=== PATIENT | female | born 2005 | race Caucasian/White ===

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

== ENCOUNTER 2025-01-14 04:17 | Emergency (ER) | payer MEDICAID ==
[~2025-01-14] VITALS: Ht 157.5 cm; Wt 93.8 kg
[~2025-01-14 04:17] MED LIST changes: +IBUP1TAB5 PO
[2025-01-14 05:10] LABS: Urine Bacteria None Seen /hpf (None Seen)
--- NOTE | 2025-01-14 05:18 | ED.PDOC ---
GI ASSESSMENT HPI Comments 19 year old female who came to ER for abdominal pain. Patient states she has been having episodes of epigastric abdominal pain, sharp nonradiating for the past 3 days. Also associated bouts of nausea, vomiting and diarrhea. Denies any possibility of Chief Complaint: Abdominal Pain Time Seen by MD: 05:17 Primary Care Provider: MELISSA Reviewed Notes: Nurses Notes Allergies: Coded Allergies: NO KNOWN ALLERGIES (Unverified , 11/19/18) Home Meds Active Scripts Ibuprofen Micronized (Ibuprofen) 600 Mg Tab, 600 MG PO Q6HPRN PRN for 5 Days, #20 TAB Prov:FILIPE MARTINEZ CUSTOMER COUNTER ASSOCIATE 12/31/24 Dexamethasone (Decadron) 4 Mg Tb, 4 MG PO BID for 5 Days, #10 TAB Prov:JOSEY REDDY MD 11/19/24 Ibuprofen (Ibuprofen) 600 Mg Tab, 1 TAB PO TID, #90 TAB Prov:JOSEY REDDY MD 11/19/24 Acetaminophen (Acetaminophen) 325 Mg Tab, 325 MG PO Q6HP PRN for 10 Days, #40 TAB 0 Refills Prov:CYNDI ALFARO ORDNANCE TRUCK INSTALLATION SUPERVISOR 09/12/24 Ibuprofen (Ibuprofen) 600 Mg Tab, 1 TAB PO TID for 10 Days, #30 TAB 0 Refills Prov:CYNDI ALFARO NP 09/12/24 Ondansetron HCl (Ondansetron) 4 Mg Tab, 4 MG PO BIDP PRN for 2 Days, #4 TAB 0 R efills Prov:CYNDI ALFARO NP 09/12/24 Promethazine-Dm (Promethazine Dm 6.25-15 mg/5Ml) 1 Barbie Barbie, 5 ML PO TIDP PRN for 10 Days, #150 ML 0 Refills Prov:CYNDI ALFARO ORDNANCE TRUCK INSTALLATION SUPERVISOR 09/12/24 Acetaminophen (Acetaminophen) 325 Mg Tab, 325 MG PO Q4HP, #30 MG Prov:CYNDI ALFARO NP 09/12/24 Ibuprofen (Ibuprofen) 600 Mg Tab, 1 TAB PO TID for 10 Days, #30 TAB 0 Refills Prov:CYNDI ALFARO NP 06/04/24 Naproxen (NAPROSYN TABLET) 500 Mg Tb, 1 TAB PO BIDWM for 30 Days, #60 TAB 0 Refills Prov:CYNDI ALFARO NP 11/30/23 Ibuprofen (Ibuprofen) 600 Mg Tab, 600 MG PO TIDP PRN for 10 Days, #30 TAB 0 Refills Prov:DOMINICCYNDI ORDNANCE TRUCK INSTALLATION SUPERVISOR 04/11/23 Cephalexin ( Keflex 500) 500 Mg Cap, 1 CAP PO QID for 7 Days, #28 CAP Prov:VELVET LANG DO 01/26/23 Oral Electrolytes (PEDIALYTE SOLUTION) 1,000 Ml So, 4 TSP PO Q1HP, #3 L Prov:ARSLAN BURT N.PDevan 07/24/13 Ibuprofen (Motrin Ib) 200 Mg Tab, 200 MG PO Q6HP, #30 Prov:ARSLAN BURT N.PDevan 07/24/13 Azithromycin (ZITHROMAX TABLET) 250 Mg Tb, 250 MG PO DAILY, #5 Prov:ARSLAN BURT.PDevan 07/24/13 Information Source: Patient Mode of Arrival: Ambulatory Timing: Hours Duration: Intermittent Prehospital treatment: None Quality: Sharp Vomitus: Food Particles Severity: Moderate Recent: None Recent Hx of: None Pain Location: Epigastric Modifying Factors: Nothing Associated sign and symptoms: Nausea, Vomiting, Diarrhea, Abdominal Pain Past Medical History PAST MEDICAL HISTORY: Anxiety, Depression Surgical History: Denies all surgeries DIGITAL MARKETING ASSOCIATE History: No Pertinent DIGITAL MARKETING ASSOCIATE History Family History Family History: Reviewed,noncontributory to illness Social History Smoker: Non-Smoker Alcohol: Denies ETOH Use Drugs: Marijuana Lives In: Home Constitutional: denies: chills, diaphoresis, fatigue, fever, malaise, sweats, weakness, others EENTM: denies: blurred vision, double vision, ear bleeding, ear discharge, ear drainage, ear pain, ear ringing, eye pain, eye redness, hearing loss, mouth pain, mouth swelling, nasal discharge, nose bleeding, nose congestion, nose pain, photophobia, tearing, throat pain, throat swelling, voice changes, others Respiratory: denies: cough, hemoptysis, orthopnea, SOB at rest, shortness of breath, SOB with excertion, stridor, wheezing, others Cardiovascular: denies: chest pain, dizzy spells, diaphoresis, Dyspnea on exertion, edema, irregular heart beat, left arm pain, lightheadedness, palpitations, PND, syncope, others Gastrointestinal: reports: abdominal pain, diarrhea, nausea, vomiting; denies: abdomen distended, blood streaked bowels, constipated, dysphagia, difficulty swallowing, hematemesis, melena, poor appetite, poor fluid intake, rectal bleeding, rectal pain, others Genitourinary: denies: abnormal vagina bleeding, burning, dyspareunia, dysuria, flank pain, frequency, hematuria, incontinence, pain, , vagina discharge, urgency, others Neurological: denies: dizziness, fainting, headache, left sided numbness, left sided weakness, numbness, paresthesia, pre-existing deficit, right sided numbness, right sided weakness, seizure, speech problems, tingling, tremors, weakness, others Musculoskeletal: denies: back pain, gout, joint pain, joint swelling, muscle pain, muscle stiffness, neck pain, others Integumetry: denies: bruises, change in color, change in hair/nails, dryness, laceration, lesions, lumps, rash, wounds, others Allergic/Immunocompromised: denies: Difficulty Healing, Frequent Infections, Hives, Itching, others Hematologic/Lymphatic: denies: anemia, blood clots, easy bleeding, easy bruisin g, swollen glands, others Endocrine: denies: excessive hunger, excessive sweating, excessive thirst, excessive urination, flushing, intolerance to cold, intolerance to heat, unexplained weight gain, unexplained weight loss, others Psychiatric: denies: anxiety, bipolar disorder, depression, hopeless, panic disorder, schizophrenia, sleepless, suicidal, others Physical Exam General Appearance: No Apparent Distress, Normal HEENT: Normal ENT Inspection, Pharynx Normal, TMs Normal Neck: Full Range of Motion, Non-Tender, Normal, Normal Inspection Respiratory: Chest Non-Tender, Lungs Clear, No Accessory Muscle Use, No Respir atory Distress, Normal Breath Sounds Cardiovascular: No Edema, No JVD, No Murmur, No Gallop, Normal Peripheral Pulses, Regular Rate/Rhythm Breast Exam: Deferred Gastrointestinal: No Organomegaly, Non Tender, No Pulsatile Mass, Normal Bowel Sounds, Soft Genitalia: Deferred Pelvic: Deferred Rectal: Deferred Extremities: No calf tenderness, Normal capillary refill, Normal inspection, Normal range of motion, Non-tender, No pedal edema Musculoskeletal : Apperance: Normal Neurologic: Alert, executive director sheltered workshop II-XII nml as Tested, No Motor Deficits, Normal Affect, Normal Mood, No Sensory Deficits Cerebellar Function: Normal Reflexes: Normal Skin: Dry, Normal Color, Warm Lymphatic: No Adenopathy Was a procedure done? Was a procedure done?: No GI differential Dx Differential Diagnosis: Appendicitis, Bowel Obstruction, Constipation, Diverticular disease, Ectopic , Gastritis/PUD, Gastroenteritis, Ovarian cyst/torsion, Pancreatitis, UTI, Urolithiasis, Electrolyte Imbalance, , Impaction X-Ray, Labs, Meds, VS Vital Signs Date Time Temp Pulse Resp B/P (MAP) Pulse Ox O2 Delivery O2 Flow Rate FiO2 01/14/25 07:28 64 17 98 Room Air* 0 21 01/14/25 07:28 98.0 64 17 130/73 (92) 98 98.0 01/14/25 04:33 98.1 56 16 106/67 (80) 98 98.1 Lab Test 01/14/25 05:46 01/14/25 04:28 Range/Units White Blood Count 12.8 H 4.4-10.8 10^3/uL Red Blood Count 5.26 H 4.0-5.20 10^6/uL Hemoglobin 13.8 12.2-16.2 g/dL Hematocrit 41.7 36.0-46.0 % Mean Corpuscular Volume 79.2 L 80.0-100.0 fL Mean Corpuscular Hemoglobin 26.1 L 28.0-32.0 pg Mean Corpuscular Hemoglobin Concent 33.0 32.0-36.0 g/dL Red Cell Distribution Width 16.0 H 11.8-14.3 % Platelet Count 330 140-450 10^3/uL Mean Platelet Volume 8.5 6.9-10.8 fL Neutrophils (%) (Auto) 78.9 37.0-80.0 % Lymphocytes (%) (Auto) 14.6 10.0-50.0 % Monocytes (%) (Auto) 2.7 0.0-12.0 % Eosinophils (%) (Auto) 3.2 0.0-7.0 % Basophils (%) (Auto) 0.6 0.0-2.0 % Neutrophils # (Auto) 10.1 H 1.6-8.6 10 ^3/uL Lymphocytes # (Auto) 1.9 0.4-5.4 10 ^3/uL Monocytes # (Auto) 0.3 0-1.3 10 ^3/uL Eosinophils # (Auto) 0.4 0-0.8 10 ^3/uL Basophils # (Auto) 0.1 0-0.2 10 ^3/uL Nucleated Red Blood Cells 0.2 % Sodium Level 141 136-145 mmol/L Potassium Level 3.5 3.5-5.1 mmol/L Chloride Level 108 H 98-107 mmol/L Carbon Dioxide Level 21 20-31 mmol/L Anion Gap 12 5-15 Blood Urea Nitrogen 8 L 9-23 mg/dL Creatinine 0.73 0.550-1.02 mg/dL Glomerular Filtration Rate Calc 121 >90 mL/min BUN/Creatinine Ratio 11.0 10.0-20.0 Serum Glucose 107 H 74-106 mg/dL Calcium Level 10.1 8.7-10.4 mg/dL Total Bilirubin 0.4 0.2-1.0 mg/dL Aspartate Amino Transferase (AST) < 8 L 13-40 U/L Alanine Aminotransferase (ALT) 12 7-40 U/L Alkaline Phosphatase 71 46-116 U/L Total Protein 7.7 5.7-8.2 g/dL Albumin 4.9 H 3.2-4.8 g/dL Lipase 37 12-53 U/L Urine Color Light-yellow Yellow Urine Clarity Turbid H Clear Urine pH 5.5 5.0-9.0 Urine Specific [place] 1.024 1.001-1.035 Urine Protein Negative Negative Urine Ketones Negative Negative Urine Blood Negative Negative /uL Urine Nitrite Negative Negative Urine Bilirubin Negative Negative Urine Urobilinogen Normal Negative mg/dL Urine Leukocyte Esterase 2+ Negative /uL Urine RBC <1 0 - 4 /hpf Urine Microscopic WBC 1 0-5 /HPF Urine Squamous Epithelial Cells Mod <5 /hpf Urine Bacteria None seen None Seen /hpf Urine Yeast (Budding) Occasional None Seen /hpf Urine Glucose Normal Normal mg/dL Urine Test Negative Negative Exam: CT CT AB PEL WO CON-NO ORAL OR IV History: abd pain Comparison Study: CT CT AB PEL WO CON-NO ORAL OR IV on DOS: 01/25/23, CT ABD PELVIS WO CONTRAST on DOS: 02/08/20 Technique: Multidetector spiral CT of the abdomen was performed from lung bases to pubic symphysis. Imaging was performed without IV contrast. Axial, coronal and sagittal multiplanar reformats were obtained from the axial data set by the technologist. Radiation Dose : 1. Abdomen/Pelvis: CTDIvol 16.38 mGy, DLP 1026.27 mGy*cm. Findings: Evaluation of solid organs is limited due to lack of intravenous contrast use. Lung Bases: No acute or significant lung base finding. Normal heart size. No pleural or pericardial effusion. Liver: The liver is enlarged, measuring 19.9 cm in craniocaudal dimension. No focal lesions. Gallbladder and Biliary Tree: Unremarkable Spleen: Unremarkable Pancreas: The pancreas is grossly normal in appearance. Adrenal Glands: Unremarkable Kidneys: Kidneys are grossly normal without calculi or hydronephrosis. Bladder: Grossly unremarkable for degree of distention. Bowel: The stomach is grossly normal in appearance. Small bowel and colon are normal in caliber and distribution. The appendix is not visualized; however, no secondary findings of acute appendicitis identified. Ascites: Absent Lymphadenopathy: Moderately prominent slightly enlarged right lower quadrant mesenteric lymph nodes measure up to 0.8 cm in short axis dimension. Abdominal Wall and Mesentery: Unremarkable. Small fat containing umbilical hernia. Vasculature: The visualized abdominal aorta is normal in size and caliber. Evaluation of abdominal and pelvic vessels is limited due to lack of intravenous contrast. Pelvic Organs: Unremarkable Musculoskeletal: No aggressive focal bony lesions, acute fractures or dislocation. IMPRESSION: 1. Mildly enlarged right lower quadrant mesenteric lymph nodes in the presence of a normal appendix. Findings are suggestive of mesenteric adenitis. 2. Hepatomegaly. Time of 1ST Reevaluation: 05:13 Reevaluation 1ST: Unchanged Time of 2ND Reevaluation: 08:38 Reevaluation 2ND: Improved Patient Education/Counseling: Diagnosis, Treatment, Prognosis, Need For Follow Up Family Education/Counseling: No Family Present Additional Information pt has mesenteric adenitis with a normal appendix on ct. she also has a uti. i will start her on keflex. she is stable for discharge Departure 1 Departure Time of Disposition: 08:38 Impression: Primary Impression: Mesenteric adenitis Additional Impression: UTI (urinary tract infection) Qualified Codes: N39.0 - Urinary tract infection, site not specified Disposition: 01 HOME / SELF CARE / HOMELESS Condition: Good e-Prescriptions Cephalexin Monohydrate (Cephalexin) 500 Mg Tab 1 TAB PO QID, #40 TAB Prov: LUCILLE SWEENEY MD 01/14/25 Discharged With: Self Critical Care Note Critical Care Time?: No Stability Stability form required: No Heart Score Heart Score: Heart Score Response (Comments) Value History N/A 0 EKG N/A 0 Age N/A 0 Risk Factors N/A 0 Troponin N/A 0 Total 0 I personally scribed for MUNDO ST MD ([email or web address]) on 01/14/25 at 05:18. Electronically submitted by Shimon Vegas ([facility] I personally scribed for MUNDO ST MD ([email or web address]) on 01/14/25 at 06:00. Electronically submitted by Shimon Vegas ([facility] MUNDO ST MD Jan 14, 2025 05:18 LUCILLE SWEENEY MD Jan 14, 2025 08:40
[2025-01-14 05:21] LABS: Urine Blood Negative /uL (Negative); Urine Budding Yeast OCCASIONAL /hpf (None Seen); Urine Clarity Turbid (Clear); Urine Color Light-Yellow (Yellow); Urine Protein, UAD Negative (Negative); Urine Specific Gravity 1.024 (1.001-1.035); Urine Squamous Epithelial Cell MOD /hpf (<5); Urine Urobilinogen Normal (Negative); Urine WBC 1 /HPF (0-5); Urine pH 5.5 (5.0-9.0)
--- NOTE | 2025-01-14 05:34 | DVH ---
Exam: CT CT AB PEL WO CON-NO ORAL OR IV History: abd pain Comparison Study: CT CT AB PEL WO CON-NO ORAL OR IV on DOS: 01/25/23, CT ABD PELVIS WO CONTRAST on DOS : 02/08/20 Technique: Multidetector spiral CT of the abdomen was performed from lung bases to pubic symphysis. I maging was performed without IV contrast. Axial, coronal and sagittal multiplanar reformats were obta ined from the axial data set by the technologist. Radiation Dose : 1. Abdomen/Pelvis: CTDIvol 16.38 mGy, DLP 1026.27 mGy*cm. Findings: Evaluation of solid organs is limited due to lack of intravenous contrast use. Lung Bases: No acute or significant lung base finding. Normal heart size. No pleural or pericardial effusion. Liver: The liver is enlarged, measuring 19.9 cm in craniocaudal dimension. No focal lesions. Gallbladder and Biliary Tree: Unremarkable Spleen: Unremarkable Pancreas: The pancreas is grossly normal in appearance. Adrenal Glands: Unremarkable Kidneys: Kidneys are grossly normal without calculi or hydronephrosis. Bladder: Grossly unremarkable for degree of distention. Bowel: The stomach is grossly normal in appearance. Small bowel and colon are normal in caliber and d istribution. The appendix is not visualized; however, no secondary findings of acute appendicitis berny ntified. Ascites: Absent Lymphadenopathy: Moderately prominent slightly enlarged right lower quadrant mesenteric lymph nodes m easure up to 0.8 cm in short axis dimension. Abdominal Wall and Mesentery: Unremarkable. Small fat containing umbilical hernia. Vasculature: The visualized abdominal aorta is normal in size and caliber. Evaluation of abdominal a nd pelvic vessels is limited due to lack of intravenous contrast. Pelvic Organs: Unremarkable Musculoskeletal: No aggressive focal bony lesions, acute fractures or dislocation. IMPRESSION: 1. Mildly enlarged right lower quadrant mesenteric lymph nodes in the presence of a normal appendix. Findings are suggestive of mesenteric adenitis. 2. Hepatomegaly. Radiation optimization: All CT scans at this facility use at least one of these dose optimization opal hniques: automated exposure control mA and/or kV adjustment per patient size (includes targeted exam s where dose is matched to clinical indication) or iterative reconstruction.
[2025-01-14 06:29] LABS: Basophils # (auto) 0.1 10 ^3/uL (0-0.2); Basophils % (auto) 0.6 % (0.0-2.0); Hematocrit 41.7 % (36.0-46.0)
[2025-01-14 06:31] LABS: Eosinophils # (auto) 0.4 10 ^3/uL (0-0.8); Eosinophils % (auto) 3.2 % (0.0-7.0); Hemoglobin 13.8 g/dL (12.2-16.2); Lymphocytes # (auto) 1.9 10 ^3/uL (0.4-5.4); Lymphocytes % (auto) 14.6 % (10.0-50.0); Mean Corpuscular Hemoglobin 26.1 pg (28.0-32.0); Mean Corpuscular Volume 79.2 fL (80.0-100.0); Monocytes # (auto) 0.3 10 ^3/uL (0-1.3); Monocytes % (auto) 2.7 % (0.0-12.0); Neutrophils # (auto) 10.1 10 ^3/uL (1.6-8.6); Neutrophils % (auto) 78.9 % (37.0-80.0); Nucleated Red Blood Cells % 0.2 %; Platelet Count (auto) 330 10^3/uL (140-450); Red Blood Cells 5.26 10^6/uL (4.0-5.20); White Blood Cell 12.8 10^3/uL (4.4-10.8)
[2025-01-14 06:39] LABS: Alanine Aminotransferase 12 U/L (7-40); Alkaline Phosphatase 71 U/L (46-116); Anion Gap 12 (5-15); Calcium 10.1 mg/dL (8.7-10.4); Carbon Dioxide 21 mmol/L (20-31); Lipase 37 U/L (12-53); Sodium 141 mmol/L (136-145); Total Protein 7.7 g/dL (5.7-8.2)
[2025-01-14 06:40] LABS: Albumin 4.9 g/dL (3.2-4.8); Aspartate Aminotransferase < 8 U/L (13-40); Bilirubin, Total 0.4 mg/dL (0.2-1.0); Blood Urea Nitrogen 8 mg/dL (9-23); Chloride 108 mmol/L (98-107); Glucose 107 mg/dL (74-106); Potassium 3.5 mmol/L (3.5-5.1)
[2025-01-14 07:28] VITALS: BP 130/73; PULSE 64; RESP 17; TEMP 98; O2SAT 98
[2025-01-14] MEDS ORDERED: CEPH500T PO (08:40)
[2025-01-14] MEDS: CEPHALEXIN 250 MG CAP PO ONE (08:48)
== END 2025-01-14 08:47 | disposition home or self-care (01) ==
LOC: ER 04:17
DX: I88.0 Nonspecific mesenteric lymphadenitis (principal); N39.0 Urinary tract infection, site not specified; F41.9 Anxiety disorder, unspecified; F32.A Depression, unspecified
CPT/HCPCS: 36415; 74176; 80053; 81001; 81025; 82947; 83690; 85025

== ENCOUNTER 2025-03-17 12:06 | Emergency (ER) | payer MEDICAID ==
[~2025-03-17] VITALS: Ht 157.5 cm; Wt 94.1 kg
[~2025-03-17 12:06] MED LIST changes: +CEPH500T PO
--- NOTE | 2025-03-17 12:33 | ED.PDOC ---
History of Present Illness HPI Comments 19-year-old female with no PMHx presents with a chief complaint of bee sting. Patient states that [place] walking at the park in the [place] and decided to take her shoe off when she stepped on a bee. Patient reports that she was able to remove most of the stinger, but still feels like part of it is stuck in her foot. Patient was stung on her right foot. Chief Complaint: Insect Bite Time Seen by MD: 12:26 Primary Care Provider: MELISSA Murray Notes: Medications, Allergies Allergies: Coded Allergies: NO KNOWN ALLERGIES (Unverified , 11/19/18) Home Meds Active Scripts Cephalexin Monohydrate (Cephalexin) 500 Mg Tab, 1 TAB PO QID, #40 TAB Prov:LUCILLE SWEENEY MD 01/14/25 Ibuprofen Micronized (Ibuprofen) 600 Mg Tab, 600 MG PO Q6HPRN PRN for 5 Days, #20 TAB Prov:FILIPE MARTINEZ FRUIT DRYER 12/31/24 Dexamethasone (Decadron) 4 Mg Tb, 4 MG PO BID for 5 Days, #10 TAB Prov:JOSEY REDDY MD 11/19/24 Ibuprofen (Ibuprofen) 600 Mg Tab, 1 TAB PO TID, #90 TAB Prov:JOSEY REDDY MD 11/19/24 Acetaminophen (Acetaminophen) 325 Mg Tab, 325 MG PO Q6HP PRN for 10 Days, #40 TAB 0 Refills Prov:CYNDI ALFARO NP 09/12/24 Ibuprofen (Ibuprofen) 600 Mg Tab, 1 TAB PO TID for 10 Days, #30 TAB 0 Refills Prov:CYNDI ALFARO NP 09/12/24 Ondansetron HCl (Ondansetron) 4 Mg Tab, 4 MG PO BIDP PRN for 2 Days, #4 TAB 0 Refills Prov:CYNDI ALFARO NP 09/12/24 Promethazine-Dm (Promethazine Dm 6.25-15 mg/5Ml) 1 Barbie Barbie, 5 ML PO TIDP PRN for 10 Days, #150 ML 0 Refills Prov:CYNDI ALFARO NP 09/12/24 Acetaminophen (Acetaminophen) 325 Mg Tab, 325 MG PO Q4HP, #30 MG Prov:CYNDI ALFARO NP 09/12/24 Ibuprofen (Ibuprofen) 600 Mg Tab, 1 TAB PO TID for 10 Days, #30 TAB 0 Refills Prov:CYNDI ALFARO WIRE COATER 06/04/24 Naproxen (NAPROSYN TABLET) 500 Mg Tb, 1 TAB PO BIDWM for 30 Days, #60 TAB 0 Refills Prov:CYNDI ALFARO WIRE COATER 11/30/23 Ibuprofen (Ibuprofen) 600 Mg Tab, 600 MG PO TIDP PRN for 10 Days, #30 TAB 0 Refills Prov:CYNDI ALFARO WIRE COATER 04/11/23 Cephalexin ( Keflex 500) 500 Mg Cap, 1 CAP PO QID for 7 Days, #28 CAP Prov:VELVET LANG DO 01/26/23 Oral Electrolytes (PEDIALYTE SOLUTION) 1,000 Ml So, 4 TSP PO Q1HP, #3 L Prov:ARSLAN BURT N.PDevan 07/24/13 Ibuprofen (Motrin Ib) 200 Mg Tab, 200 MG PO Q6HP, #30 Prov:ARSLAN BURT N.PDevan 07/24/13 Azithromycin (ZITHROMAX TABLET) 250 Mg Tb, 250 MG PO DAILY, #5 Prov:ARSLAN BURT N.PDevan 07/24/13 Information Source: Patient Mode of Arrival: Ambulatory Severity: Moderate Timing: Hours Duration: Since onset Prehospital treatment: None Past Medical History PAST MEDICAL HISTORY: Anxiety, Depression Surgical History: Denies all surgeries CROSS CUT SAWYER History: No Pertinent CROSS CUT SAWYER History Family History Family History: Reviewed,noncontributory to illness Social History Smoker: Non-Smoker Alcohol: Denies ETOH Use Drugs: Marijuana Lives In: Home Constitutional: denies: chills, diaphoresis, fatigue, fever, malaise, sweats, weakness, others EENTM: denies: blurred vision, double vision, ear bleeding, ear discharge, ear drainage, ear pain, ear ringing, eye pain, eye redness, hearing loss, mouth pain, mouth swelling, nasal discharge, nose bleeding, nose congestion, nose pain, photophobia, tearing, throat pain, throat swelling, voice changes, others Respiratory: denies: cough, hemoptysis, orthopnea, SOB at rest, shortness of breath, SOB with excertion, stridor, wheezing, others Cardiovascular: denies: chest pain, dizzy spells, diaphoresis, Dyspnea on exertion, edema, irregular heart beat, left arm pain, lightheadedness, palpitations, PND, syncope, others Gastrointestinal: denies: abdomen distended, abdominal pain, blood streaked bowels, constipated, diarrhea, dysphagia, difficulty swallowing, hematemesis, melena, nausea, poor appetite, poor fluid intake, rectal bleeding, rectal pain, vomiting, others Genitourinary: denies: abnormal vagina bleeding, burning, dyspareunia, dysuria, flank pain, frequency, hematuria, incontinence, pain, , vagina discharge, urgency, others Neurological: denies: dizziness, fainting, headache, left sided numbness, left sided weakness, numbness, paresthesia, pre-existing deficit, right sided numbness, right sided weakness, seizure, speech problems, tingling, tremors, weakness, others Musculoskeletal: denies: back pain, gout, joint pain, joint swelling, muscle pain, muscle stiffness, neck pain, others Integumetry: denies: bruises, change in color, change in hair/nails, dryness, laceration, lesions, lumps, rash, wounds, others Allergic/Immunocompromised: denies: Difficulty Healing, Frequent Infections, Hives, Itching, others Hematologic/Lymphatic: denies: anemia, blood clots, easy bleeding, easy bruising, swollen glands, others Endocrine: denies: excessive hunger, excessive sweating, excessive thirst, excessive urination, flushing, intolerance to cold, intolerance to heat, une xplained weight gain, unexplained weight loss, others Psychiatric: denies: anxiety, bipolar disorder, depression, hopeless, panic disorder, schizophrenia, sleepless, suicidal, others All Other Systems: Reviewed and Negative ( PER HPI) Physical Exam General Appearance: Moderate Distress, Normal HEENT: Normal ENT Inspection, Pharynx Normal, TMs Normal Neck: Full Range of Motion, Non-Tender, Normal, Normal Inspection Respiratory: Chest Non-Tender, Lungs Clear, No Accessory Muscle Use, No Resp iratory Distress, Normal Breath Sounds Cardiovascular: No Edema, No JVD, No Murmur, No Gallop, Normal Peripheral Pulses, Regular Rate/Rhythm Breast Exam: Deferred Gastrointestinal: No Organomegaly, Non Tender, No Pulsatile Mass, Normal Bowel Sounds, Soft Genitalia: Deferred Pelvic: Deferred Rectal: Deferred Extremities: No calf tenderness, Normal capillary refill, Normal inspection, Normal range of motion, Non-tender, No pedal edema Musculoskeletal : Apperance: Normal Neurologic: Alert, detective bureau chief II-XII nml as Tested, No Motor Deficits, Normal Affect, Normal Mood, No Sensory Deficits Cerebellar Function: Normal Reflexes: Normal Skin: Dry, Normal Color, Warm, Wounds (Right foot sole insect bite) Peripheral Pulses: 3+ Radial (R), 3+ Radial (L) Lymphatic: No Adenopathy Was a procedure done? Was a procedure done?: No Differential Dx Considerations may include: Foreign body Anxiety X-Ray, Labs, Meds, VS Vital Signs Date Time Temp Pulse Resp B/P (MAP) Pulse Ox O2 Delivery O2 Flow Rate FiO2 03/17/25 12:15 98.5 80 18 134/82 (99) 95 98.5 Patient alert pain Possibly insect bite. Under local anesthesia was able to remove the remnant of the insect. Vitals stable. Answering questions. She is not diabetic. Was given prescription of amoxicillin antibiotic. Explained to the patient. Was told to follow up with her primary care physician. Was told to come back if there is any problem. Time of 1ST Reevaluation: 12:56 Reevaluation 1ST: Improved Patient Education/Counseling: Diagnosis, Treatment, Need For Follow Up Family Education/Counseling: No Family Present SEPSIS Sepsis Screen Vital Signs Date Time Temp Pulse Resp B/P (MAP) Pulse Ox O2 Delivery O2 Flow Rate FiO2 03/17/25 12:15 98.5 80 18 134/82 (99) 95 98.5 Departure 1 Departure Time of Disposition: 12:58 Impression: Primary Impression: Foreign body Additional Impression: Insect bite Qualified Codes: S90.861A - Insect bite (nonvenomous), right foot, initial encounter; W57.XXXA - Bitten or stung by nonvenomous insect and other nonvenomous arthropods, initial encounter Disposition: 01 HOME / SELF CARE / HOMELESS Condition: Good e-Prescriptions Amoxicillin Trihydrate (Amoxicillin) 500 Mg Tab 1 TAB PO TID for 5 Days, #15 TAB Prov: SVEN CHOI MD 03/17/25 Discharged With: Self Critical Care Note Critical Care Time?: No Stability Stability form required: No Heart Score Heart Score: Heart Score Response (Comments) Value History N/A 0 EKG N/A 0 Age N/A 0 Risk Factors N/A 0 Troponin N/A 0 Total 0 I personally scribed for SVEN CHOI MD ([email or web address]) on 03/17/25 at 12:33. Electronically submitted by Vince Ashby ([email or web address]). SVEN CHOI MD Mar 17, 2025 12:33
[2025-03-17] MEDS: LIDOCAINE 2%HCL (LOCAL ANESTH.) INJ 10ml MDV IJ ONE (12:38)
[2025-03-17] MEDS ORDERED: AMOX500T3 PO (12:58)
[2025-03-17 13:28] VITALS: BP 101/68; PULSE 79; RESP 18; TEMP 98.2; O2SAT 97
== END 2025-03-17 13:46 | disposition home or self-care (01) ==
LOC: ER 12:06
DX: S90.859A Superficial foreign body, unspecified foot, initial encounter (principal); W57.XXXA Bitten or stung by nonvenomous insect and other nonvenomous arthropods, initial encounter; Y93.01 Activity, walking, marching and hiking; Y92.89 Other specified places as the place of occurrence of the external cause; Y99.8 Other external cause status
CPT/HCPCS: 99284; J2003

== ENCOUNTER 2025-07-19 17:46 | Emergency (ER) | payer MEDICAID ==
[~2025-07-19] VITALS: Ht 157.5 cm; Wt 97.2 kg
[~2025-07-19 17:46] MED LIST changes: +AMOX500T3 PO
[2025-07-19] MEDS ORDERED: METH4PAK PO (18:46)
[2025-07-19] MEDS ORDERED: FAMO20TA10 PO (18:46)
[2025-07-19] MEDS: FAMOTIDINE 20 MG TAB PO ONE (18:48)
[2025-07-19 18:57] VITALS: BP 125/78; PULSE 113; RESP 20; TEMP 98; O2SAT 98
--- NOTE | 2025-07-20 11:24 | ED.PDOC ---
HPI Allergic reaction HPI Comments PT REPORTS EATING CANDY WITH PEANUTS YESTERDAY AND STATES SHE MAY BE ALLERGIC DUE TO SOB STARTED AFTER CONSUMPTIONS YESTERDAY AROUND 1800. PT STATES HAVING PEANUTS IN THE PAST WITH NO REACTION. PT SAT AT 96% ON RA, SPEAKING FULL SENTENCES, EVEN AND UNLABORED BREATHING. NO DISTRESS NOTED Chief Complaint: Allergic Reaction Time Seen by MD: 17:59 Primary Care Provider: MELISSA Reviewed Notes: Nurses Notes, Medications, Allergies Allergies: Coded Allergies: NO KNOWN ALLERGIES (Unverified , 11/19/18) Home Meds Active Scripts Famotidine (PEPCID TABLET) 20 Mg Tb, 1 TAB PO BID for 6 Days, #12 TAB Prov:LUCINDA DELAROSA REGULATORY ADMINISTRATOR 07/19/25 Methylprednisolone (Medrol Dosepak) 4 Mg Nicolas, 4 MG PO UD for 6 Days, #21 TAB UAD Prov:LUCINDA DELAROSA REGULATORY ADMINISTRATOR 07/19/25 Amoxicillin Trihydrate (Amoxicillin) 500 Mg Tab, 1 TAB PO TID for 5 Days, #15 TAB Prov:SVEN CHOI MD 03/17/25 Cephalexin Monohydrate (Cephalexin) 500 Mg Tab, 1 TAB PO QID, #40 TAB Prov:LUCILLE SWEENEY MD 01/14/25 Ibuprofen Micronized (Ibuprofen) 600 Mg Tab, 600 MG PO Q6HPRN PRN for 5 Days, #20 TAB Prov:FILIPE MARTINEZ REGULATORY ADMINISTRATOR 12/31/24 Dexamethasone (Decadron) 4 Mg Tb, 4 MG PO BID for 5 Days, #10 TAB Prov:JOSEY REDDY MD 11/19/24 Ibuprofen (Ibuprofen) 600 Mg Tab, 1 TAB PO TID, #90 TAB Prov:JOSEY REDDY MD 11/19/24 Acetaminophen (Acetaminophen) 325 Mg Tab, 325 MG PO Q6HP PRN for 10 Days, #40 TAB 0 Refills Prov:CYNDI ALFARO NP 09/12/24 Ibuprofen (Ibuprofen) 600 Mg Tab, 1 TAB PO TID for 10 Days, #30 TAB 0 Refills Prov:CYNDI ALFAOR SOCIAL MEDIA MARKETING MANAGER 09/12/24 Ondansetron HCl (Ondansetron) 4 Mg Tab, 4 MG PO BIDP PRN for 2 Days, #4 TAB 0 Refills Prov:CYNDI ALFARO NP 09/12/24 Promethazine-Dm (Promethazine Dm 6.25-15 mg/5Ml) 1 Barbie Barbie, 5 ML PO TIDP PRN for 10 Days, #150 ML 0 Refills Prov:CYNDI ALFARO SOCIAL MEDIA MARKETING MANAGER 09/12/24 Acetaminophen (Acetaminophen) 325 Mg Tab, 325 MG PO Q4HP, #30 MG Prov:CYNDI ALFARO SOCIAL MEDIA MARKETING MANAGER 09/12/24 Ibuprofen (Ibuprofen) 600 Mg Tab, 1 TAB PO TID for 10 Days, #30 TAB 0 Refills Prov:CYNDI ALFARO SOCIAL MEDIA MARKETING MANAGER 06/04/24 Naproxen (NAPROSYN TABLET) 500 Mg Tb, 1 TAB PO BIDWM for 30 Days, #60 TAB 0 Refills Prov:CYNDI ALFARO SOCIAL MEDIA MARKETING MANAGER 11/30/23 Ibuprofen (Ibuprofen) 600 Mg Tab, 600 MG PO TIDP PRN for 10 Days, #30 TAB 0 Refills Prov:CYNDI ALFARO SOCIAL MEDIA MARKETING MANAGER 04/11/23 Cephalexin ( Keflex 500) 500 Mg Cap, 1 CAP PO QID for 7 Days, #28 CAP Prov:VELVET LANG DO 01/26/23 Oral Electrolytes (PEDIALYTE SOLUTION) 1,000 Ml So, 4 TSP PO Q1HP, #3 L Prov:ARSLAN BURT N.P. 07/24/13 Ibuprofen (Motrin Ib) 200 Mg Tab, 200 MG PO Q6HP, #30 Prov:ARSLAN BURT N.P. 07/24/13 Azithromycin (ZITHROMAX TABLET) 250 Mg Tb, 250 MG PO DAILY, #5 Prov:ARSLAN BURT N.P. 07/24/13 Mode of Arrival: Ambulatory Past Medical History PAST MEDICAL HISTORY: Anxiety, Depression Surgical History: Denies all surgeries BULLDOGGER History: No Pertinent BULLDOGGER History Family History Family History: Reviewed,noncontributory to illness Social History Smoker: Non-Smoker Alcohol: Denies ETOH Use Drugs: Marijuana Lives In: Home All Other Systems: Reviewed and Negative (SEE HPI) Physical Exam General Appearance: No Apparent Distress, Normal HEENT: Pharynx Normal Neck: Full Range of Motion, Non-Tender Respiratory: Lungs Clear, No Accessory Muscle Use, No Respiratory Distress, Normal Breath Sounds Cardiovascular: No Edema, No JVD, No Murmur, No Gallop, Normal Peripheral Pulses, Regular Rate/Rhythm Breast Exam: Deferred Gastrointestinal: No Organomegaly, Non Tender, No Pulsatile Mass, Normal Bowel Sounds, Soft Genitalia: Deferred Pelvic: Deferred Rectal: Deferred Extremities: Normal range of motion, No pedal edema Musculoskeletal : Apperance: Normal Neurologic: Alert, No Motor Deficits, Normal Affect, Normal Mood, No Sensory Deficits Cerebellar Function: Normal Reflexes: NOT DONE Skin: Dry, Normal Color, Warm Lymphatic: No Adenopathy Was a procedure done? Was a procedure done?: No Differential diagnosis (all) Differential Diagnosis: Anaphylaxis, Angioedema, Bronchospasm, Drug Reaction, Hypotension, Shock, Urticaria X-Ray, Labs, Meds, VS Vital Signs Date Time Temp Pulse Resp B/P (MAP) Pulse Ox O2 Delivery O2 Flow Rate FiO2 07/19/25 18:57 98.0 113 20 125/78 (94) 98 98.0 07/19/25 18:57 113 20 98 Room Air 07/19/25 17:48 98.0 113 20 125/78 98 98.0 Time of 1ST Reevaluation: 18:00 Reevaluation 1ST: Improved Time of 2ND Reevaluation: 18:45 Reevaluation 2ND: Improved Patient Education/Counseling: Diagnosis, Treatment, Need For Follow Up Family Education/Counseling: No Family Present SEPSIS Sepsis Screen Date sepsis recognized/suspect: Jul 19, 2025 Time Sepsis recognized/suspect: 8 Recent Procedure: No On Antibiotic Therapy: No Respiratory Rate >20: No Heart Rate >90: Yes Temp<36 C (96.8 F) or >38.3 C: No SBP <90 or MAP <65 mmHG: No New Acute Mental Status Change: No Is the patient on CPAP, BIPAP,: No Vital Signs Date Time Temp Pulse Resp B/P (MAP) Pulse Ox O2 Delivery O2 Flow Rate FiO2 07/19/25 18:57 98.0 113 20 125/78 (94) 98 98.0 07/19/25 18:57 113 20 98 Room Air 07/19/25 17:48 98.0 113 20 125/78 98 98.0 Departure 1 Departure Time of Disposition: 18:45 Impression: Primary Impression: Allergic reaction Qualified Codes: T78.40XA - Allergy, unspecified, initial encounter Disposition: HOME / SELF CARE / HOMELESS Condition: Stable e-Prescriptions Famotidine (PEPCID TABLET) 20 Mg Tb 1 TAB PO BID for 6 Days, #12 TAB Prov: LUCINDA DELAROSA 07/19/25 Methylprednisolone (Medrol Dosepak) 4 Mg Nicolas 4 MG PO UD for 6 Days, #21 TAB UAD Prov: LUCINDA DELAROSA 07/19/25 Discharged With: Relative (Mother) Critical Care Note Critical Care Time?: No Stability Stability form required: No LUCINDA DELAROSA Jul 19, 2025 18:46
== END 2025-07-19 18:57 | disposition home or self-care (01) ==
LOC: ER 17:49
DX: R06.02 Shortness of breath (principal); T78.40XA Allergy, unspecified, initial encounter; Z79.899 Other long term (current) drug therapy; X58.XXXA Exposure to other specified factors, initial encounter
CPT/HCPCS: 96372; 99283; J1100

== ENCOUNTER 2025-09-02 13:06 | Emergency (ER) | payer MEDICAID ==
[~2025-09-02] VITALS: Ht 160 cm; Wt 95.4 kg
--- NOTE | 2025-09-02 13:20 | ED.PDOC ---
HPI Comments 20 y/o F, GAVIN, with PMHx of anxiety and depression presents to the ED for CC of chest pain. EMS reports, patient is coming from home where she c/o substernal chest pain onset, this morning (09/02/25) following feeling anxious. Per EMS, patient became emotional and distraught d/t symptoms. Upon arrival to the ED, patient reports pain to have subsided. Patient denies headache, dizziness, nausea, or vomiting. No other symptoms or modifying factors are present at this time. Chief Complaint: Chest Pain Time Seen by MD: 13:00 Primary Care Provider: MELISSA Reviewed Notes: Nurses Notes, Auto Battery Builder Notes, Medications, Allergies Allergies: Coded Allergies: NO KNOWN ALLERGIES (Unverified , 11/19/18) Home Meds Active Scripts Amoxicillin Trihydrate (Amoxicillin) 500 Mg Tab, 1 TAB PO TID for 5 Days, #15 TAB Prov:SVEN CHOI MD 03/17/25 Cephalexin Monohydrate (Cephalexin) 500 Mg Tab, 1 TAB PO QID, #40 TAB Prov:LUCILLE SWEENEY MD 01/14/25 Ibuprofen Micronized (Ibuprofen) 600 Mg Tab, 600 MG PO Q6HPRN PRN for 5 Days, #20 TAB Prov:FILIPE MARTINEZ 12/31/24 Dexamethasone (Decadron) 4 Mg Tb, 4 MG PO BID for 5 Days, #10 TAB Prov:JOSEY REDDY MD 11/19/24 Ibuprofen (Ibuprofen) 600 Mg Tab, 1 TAB PO TID, #90 TAB Prov:JOSEY REDDY MD 11/19/24 Acetaminophen (Acetaminophen) 325 Mg Tab, 325 MG PO Q6HP PRN for 10 Days, #40 TAB 0 Refills Prov:CYNDI ALFARO NP 09/12/24 Ibuprofen (Ibuprofen) 600 Mg Tab, 1 TAB PO TID for 10 Days, #30 TAB 0 Refills Prov:CYNDI ALFARO NP 09/12/24 Ondansetron HCl (Ondansetron) 4 Mg Tab, 4 MG PO BIDP PRN for 2 Days, #4 TAB 0 Refills Prov:CYNDI ALFARO NP 09/12/24 Promethazine-Dm (Promethazine Dm 6.25-15 mg/5Ml) 1 Barbie Barbie, 5 ML PO TIDP PRN for 10 Days, #150 ML 0 Refills Prov:CYNDI ALFARO INSTRUMENTATION TECHNOLOGIST 09/12/24 Acetaminophen (Acetaminophen) 325 Mg Tab, 325 MG PO Q4HP, #30 MG Prov:CYNDI ALFARO INSTRUMENTATION TECHNOLOGIST 09/12/24 Ibuprofen (Ibuprofen) 600 Mg Tab, 1 TAB PO TID for 10 Days, #30 TAB 0 Refills Prov:CYNDI ALFARO INSTRUMENTATION TECHNOLOGIST 06/04/24 Naproxen (NAPROSYN TABLET) 500 Mg Tb, 1 TAB PO BIDWM for 30 Days, #60 TAB 0 Refills Prov:CYNDI ALFARO INSTRUMENTATION TECHNOLOGIST 11/30/23 Ibuprofen (Ibuprofen) 600 Mg Tab, 600 MG PO TIDP PRN for 10 Days, #30 TAB 0 Refills Prov:CYNDI ALFARO INSTRUMENTATION TECHNOLOGIST 04/11/23 Cephalexin ( Keflex 500) 500 Mg Cap, 1 CAP PO QID for 7 Days, #28 CAP Prov:VELVET LANG DO 01/26/23 Oral Electrolytes (PEDIALYTE SOLUTION) 1,000 Ml So, 4 TSP PO Q1HP, #3 L Prov:ARSLAN BURT N.P. 07/24/13 Ibuprofen (Motrin Ib) 200 Mg Tab, 200 MG PO Q6HP, #30 Prov:ARSLAN BURT N.P. 07/24/13 Azithromycin (ZITHROMAX TABLET) 250 Mg Tb, 250 MG PO DAILY, #5 Prov:ARSLAN BURT N.P. 07/24/13 Information Source: Patient Mode of Arrival: EMS Severity: Moderate Timing: Hours Duration: Hours Prehospital treatment: None Location: Substernal Radiation: No Radiation Onset: At Rest Cardiac Risk Factors: None PE Risk Factors: None History of: None Modifying Factors: Nothing Associated Signs and Symptoms: None Past Medical History PAST MEDICAL HISTORY: Anxiety, Depression Surgical History: Denies all surgeries CRIME SCENE EVIDENCE TECHNICIAN History: No Pertinent CRIME SCENE EVIDENCE TECHNICIAN History Family History Family History: Reviewed,noncontributory to illness Social History Smoker: Non-Smoker Alcohol: Denies ETOH Use Drugs: Marijuana Lives In: Home Constitutional: denies: chills, diaphoresis, fatigue, fever, malaise, sweats, weakness, others EENTM: denies: blurred vision, double vision, ear bleeding, ear discharge, ear drainage, ear pain, ear ringing, eye pain, eye redness, hearing loss, mouth pain, mouth swelling, nasal discharge, nose bleeding, nose congestion, nose pain, photophobia, tearing, throat pain, throat swelling, voice changes, others Respiratory: denies: cough, hemoptysis, orthopnea, SOB at rest, shortness of breath, SOB with excertion, stridor, wheezing, others Cardiovascular: reports: chest pain; denies: dizzy spells, diaphoresis, Dyspnea on exertion, edema, irregular heart beat, left arm pain, lightheadedness, palpitations, PND, syncope, others Gastrointestinal: denies: abdomen distended, abdominal pain, blood streaked bowels, constipated, diarrhea, dysphagia, difficulty swallowing, hematemesis, melena, nausea, poor appetite, poor fluid intake, rectal bleeding, rectal pain, vomiting, others Genitourinary: denies: abnormal vagina bleeding, burning, dyspareunia, dysuria, flank pain, frequency, hematuria, incontinence, pain, , vagina discharge, urgency, others Neurological: denies: dizziness, fainting, headache, left sided numbness, left sided weakness, numbness, paresthesia, pre-existing deficit, right sided numbness, right sided weakness, seizure, speech problems, tingling, tremors, weakness, others Musculoskeletal: denies: back pain, gout, joint pain, joint swelling, muscle pain, muscle stiffness, neck pain, others Integumetry: denies: bruises, change in color, change in hair/nails, dryness, laceration, lesions, lumps, rash, wounds, others Allergic/Immunocompromised: denies: Difficulty Healing, Frequent Infections, Hives, Itching, others Hematologic/Lymphatic: denies: anemia, blood clots, easy bleeding, easy bruising, swollen glands, others Endocrine: denies: excessive hunger, excessive sweating, excessive thirst, excessive urination, flushing, intolerance to cold, intolerance to heat, unexplained weight gain, unexplained weight loss, others Psychiatric: denies: anxiety, bipolar disorder, depression, hopeless, panic dis order, schizophrenia, sleepless, suicidal, others All Other Systems: Reviewed and Negative Physical Exam General Appearance: No Apparent Distress, Normal, Other (anxious appearing) HEENT: Normal ENT Inspection, Pharynx Normal Neck: Full Range of Motion, Non-Tender, Normal, Normal Inspection Respiratory: Chest Non-Tender, Lungs Clear, No Accessory Muscle Use, No Respiratory Distress, Normal Breath Sounds Cardiovascular: No Edema, No Murmur, No Gallop, Normal Peripheral Pulses, Regular Rate/Rhythm Breast Exam: Deferred Gastrointestinal: No Organomegaly, Non Tender, No Pulsatile Mass, Normal Bowel Sounds, Soft Genitalia: Deferred Pelvic: Deferred Rectal: Deferred Extremities: No calf tenderness, Normal capillary refill, Normal inspection, No rmal range of motion, Non-tender, No pedal edema Musculoskeletal : Apperance: Normal Neurologic: Alert, salt maker II-XII nml as Tested, No Motor Deficits, Normal Affect, Normal Mood, No Sensory Deficits Cerebellar Function: Normal Reflexes: Normal Skin: Dry, Normal Color, Warm Lymphatic: No Adenopathy Was a procedure done? Was a procedure done?: No CP Differential Dx Differential Diagnosis: Anxiety / Panic Attack Differential Diagnosis: Chest Wall Pain X-Ray, Labs, Meds, VS Vital Signs Date Time Temp Pulse Resp B/P (MAP) Pulse Ox O2 Delivery O2 Flow Rate FiO2 09/02/25 15:35 54 18 98 Room Air 09/02/25 15:35 98.1 54 18 118/73 (88) 98 98.1 09/02/25 14:06 63 09/02/25 13:10 98.2 84 20 124/98 100 98.2 09/02/25 13:10 71 Lab Test 09/02/25 14:32 09/02/25 13:30 Range/Units Troponin I High Sensitivity < 3 L < 3 L </=34 ng/L White Blood Count 7.2 4.4-10.8 10^3/uL Red Blood Count 5.06 4.0-5.20 10^6/uL Hemoglobin 13.0 12.2-16.2 g/dL Hematocrit 38.3 36.0-46.0 % Mean Corpuscular Volume 75.6 L 80.0-100.0 fL Mean Corpuscular Hemoglobin 25.7 L 28.0-32.0 pg Mean Corpuscular Hemoglobin Concent 34.0 32.0-36.0 g/dL Red Cell Distribution Width 15.6 H 11.8-14.3 % Platelet Count 318 140-450 10^3/uL Mean Platelet Volume 8.4 6.9-10.8 fL Neutrophils (%) (Auto) 69.6 37.0-80.0 % Lymphocytes (%) (Auto) 18.7 10.0-50.0 % Monocytes (%) (Auto) 5.8 0.0-12.0 % Eosinophils (%) (Auto) 5.0 0.0-7.0 % Basophils (%) (Auto) 0.9 0.0-2.0 % Neutrophils # (Auto) 5.0 1.6-8.6 10 ^3/uL Lymphocytes # (Auto) 1.3 0.4-5.4 10 ^3/uL Monocytes # (Auto) 0.4 0-1.3 10 ^3/uL Eosinophils # (Auto) 0.4 0-0.8 10 ^3/uL Basophils # (Auto) 0.1 0-0.2 10 ^3/uL Nucleated Red Blood Cells 0.1 % Sodium Level 139 136-145 mmol/L Potassium Level 3.6 3.5-5.1 mmol/L Chloride Level 106 98-107 mmol/L Carbon Dioxide Level 21 20-31 mmol/L Anion Gap 12 5-15 Blood Urea Nitrogen 10 9-23 mg/dL Creatinine 0.80 0.550-1.02 mg/dL Glomerular Filtration Rate Calc 108 >90 mL/min BUN/Creatinine Ratio 12.5 10.0-20.0 Serum Glucose 96 74-106 mg/dL Calcium Level 9.5 8.7-10.4 mg/dL Time of 1ST Reevaluation: 13:30 Reevaluation 1ST: Unchanged Patient Education/Counseling: Diagnosis, Treatment Family Education/Counseling: No Family Present SEPSIS Sepsis Screen Vital Signs Date Time Temp Pulse Resp B/P (MAP) Pulse Ox O2 Delivery O2 Flow Rate FiO2 09/02/25 15:35 54 18 98 Room Air 09/02/25 15:35 98.1 54 18 118/73 (88) 98 98.1 09/02/25 14:06 63 09/02/25 13:10 98.2 84 20 124/98 100 98.2 09/02/25 13:10 71 Laboratory Tests Test 09/02/25 13:30 White Blood Count 7.2 10^3/uL (4.4-10.8) Departure 1 Departure Time of Disposition: 18:12 (Patient presented with chest pain that was concerning for possible STEMI, ACS, PE, Pneumonia, Muscle Strain, COPD, Dissection. Data: 1. I ordered and reviewed the result of at least 3 labs including a CBC, BMP, and Troponin. 2. I independently interpreted the following tests: EKG which shows normal sinus rhythm and Chest X-ray which shows a benign chest.Risk:This patient presented with a high risk of morbidity due to further diagnostic testing or treatment and may suffer from an acute cardiac or respiratory disorder. After review of all the data patient is unlikely to have a pe , dissection, and is low risk for acs. Patient is stable at this time.Workup so far is benign and patient will be discharged with outpatient followup. ) Impression: Primary Impression: Acute chest pain Disposition: HOME / SELF CARE / HOMELESS Condition: Stable Additional Instructions: You presented today with chest pain. Your workup today was benign including labs, troponin, EKG, chest x-ray. Your pain may be from musculoskeletal strain, acid reflux, anxiety, or many other factors. It is important to follow up with your regular doctor within 1 week. If your symptoms worsen or you have any other concerns please return to the emergency room. Discharged With: Self Critical Care Note Critical Care Time?: No Stability Stability form required: No Heart Score Heart Score: Heart Score Response (Comments) Value History N/A 0 EKG N/A 0 Age N/A 0 Risk Factors N/A 0 Troponin N/A 0 Total 0 I personally scribed for MARIVEL PUCKETT MD ([email or web address]) on 09/02/25 at 13:20. Electronically submitted by Sienna Reed ([email or web address]). MARIVEL PUCKETT MD Sep 02, 2025 13:20
[2025-09-02 13:43] LABS: Mean Corpuscular Hemoglobin 25.7 pg (28.0-32.0)
[2025-09-02 13:45] LABS: Hematocrit 38.3 % (36.0-46.0); Hemoglobin 13.0 g/dL (12.2-16.2); Mean Corpuscular Volume 75.6 fL (80.0-100.0); Nucleated Red Blood Cells % 0.1 %
[2025-09-02 13:56] LABS: Chloride 106 mmol/L (98-107); Potassium 3.6 mmol/L (3.5-5.1); Sodium 139 mmol/L (136-145)
[2025-09-02 13:57] LABS: Anion Gap 12 (5-15); Calcium 9.5 mg/dL (8.7-10.4); Carbon Dioxide 21 mmol/L (20-31)
[2025-09-02 14:02] LABS: BUN/Creatinine Ratio 12.5 (10.0-20.0); Blood Urea Nitrogen 10 mg/dL (9-23); Glucose 96 mg/dL (74-106)
--- NOTE | 2025-09-02 14:07 | ECG ---
[facility] Test Date: 2025-09-02 Test Time: 14:06:42 Pat Name: NIYA SZYMANSKI Department: ER Room: Gender: F Cycle Touring Guide: ERASMO : 2005 Requested By: MARIVEL PUCKETT Order Number: [id number] Reading MD: Conner Petit Measurements Intervals [place] Rate: 63 P: 24 MO: 164 QRS: 42 QRSD: 88 T: 28 QT: 388 QTc: 398 Interpretive Statements Sinus rhythm Baseline wander in lead(s) V3,V4,V5 Electronically Signed On 09-06-2025 8:36:02 PST by Conner Petit Please click the below link to view image of tracing.
--- NOTE | 2025-09-02 17:35 | ECG ---
[facility] Test Date: 2025-09-02 Test Time: 13:10:52 Pat Name: NIYA SZYMANSKI Department: ED Room: Gender: F Health Practice Manager: IC : 2005 Requested By: MARIVEL PUCKETT Order Number: [id number] Reading MD: Conner Petit Measurements Intervals [place] Rate: 71 P: 25 UT: 161 QRS: 45 QRSD: 97 T: 22 QT: 384 QTc: 418 Interpretive Statements Sinus arrhythmia Electronically Signed On 09-06-2025 8:35:54 PST by Conner Petit Please click the below link to view image of tracing.
[2025-09-02 18:18] VITALS: BP 109/72; PULSE 74; RESP 18; TEMP 98; O2SAT 99
== END 2025-09-02 18:27 | disposition home or self-care (01) ==
LOC: EDSEX 13:06 → EDBD 13:06 → ER 13:06
DX: R07.89 Other chest pain (principal); F41.9 Anxiety disorder, unspecified; F32.A Depression, unspecified; Z79.899 Other long term (current) drug therapy
CPT/HCPCS: 36415; 80048; 84484; 85025; 93005

== ENCOUNTER 2025-09-04 20:54 | Emergency (ER) | payer MEDICAID ==
[~2025-09-04] VITALS: Ht 157.5 cm; Wt 95.9 kg
--- NOTE | 2025-09-04 21:24 | ED.PDOC ---
General HPI Comments HPI: PAST MEDICAL HISTORY: KIDNEY STONES, ANXIETY, ADHD, DEPRESSION PAST SURGICAL HISTORY: DENIES ANY SOCIAL HISTORY: DENIES ANY HPI: Poor Historian. 20-year-old female presents to emergency depart for evaluation of right flank pain for one day. Patient has history of kidney stones in the past and she suspects that she might be getting another kidney stone. Patient denies any other associated symptoms of nausea and vomiting or any urinary symptoms. Denies any fever. REVIEW OF SYSTEMS: CONSTITUTIONAL: Denies acute: fever, diaphoresis, chills, generalized weakness. HEAD: Denies acute: headache, photophobia Eyes: Denies acute: Double vision, vision loss, eye pain, eye discharge. EARS: Denies acute: tinnitus, hearing loss, ear discharge, ear pain, THROAT: Denies acute: sore throat, swelling, difficulty swallowing , pain with swallowing, change in voice. NECK: Denies acute: neck pain, neck swelling, stiff neck. HEART: Denies acute : chest pain, palpitations, LUNGS: Denies acute: SOB, wheezing, cough, hemoptysis ABDOMEN: Denies acute: abdominal pain, Nausea, Vomiting, diarrhea, melena , hematemesis, hematochezia SKIN: Denies acute: rash, redness, lesions, itchiness. EXTREMITIES: Denies acute: calf pain, numbness, tingling, weakness, denies pain in extremity. Denies acute: Low back pain. Neuro: Denies acute: focal neurological deficit, motor or sensory focal neurological deficit, tremors, seizure like activity, confusion, dizziness, change in mental status, loss of bowel or bladder function, cauda equina like symptoms. : Denies acute: dysuria, hematuria, increase in urinary frequency. PSYCH: Denies acute: hallucination, suicidal ideation, homicidal ideation. FEMALE: Denies acute: abnormal vaginal bleeding, foul odor, unusual discharge. PHYSICAL EXAM: General: ----mild----acute distress, awake and alert. Head: normocephalic, atraumatic. No raccoon's eyes, no ordaz sign. Neck: supple, trachea is midline, no swelling. Throat: Normal phonation. Eyes:, no erythema, no purulent discharge, no proptosis, no icterus. Heart: regular rate, regular rhythm, no significant murmur appreciated. Lungs: no apparent respiratory distress, Able to speak in full sentences. No wheezing, no rhonchi, no crackles. No stridors Clear to auscultation bilaterally. Abdomen: non tender to palpation, non distended, soft, no guarding, no rebound, + bowel sounds. Neuro: Awake, Alert, oriented to name, self, situation, follows commands GCS=15. Speech is normal. Skin: no petechia, no purpura, no cyanosis, non-pale, not jaundice. Lower extremities: --no - Pitting edema no deformity, no focal swelling, no calf TTP. Makes eye contact. moves all four extremities. Face: no apparent facial droop. Right CVA tenderness to percussion Ambulating in the ED independently. ED COURSE: DISCLAIMER: This medical document was created using an electronic medical record system with voice recognition software and computerized dictation system. Although this document has been carefully reviewed, there might still be some phonetic and typographical errors. Occasional wrong-word or "sound-alike" substitutions may have occurred due to the inherent limitations of voice recognition software. These areas are purely typographical due to imperfections of the software programs and do not reflect any compromise in the patient's medical care. Please read the chart carefully and recognize, using context, where these substitutions have occurred. Chief Complaint: Back Pain Time Seen by MD: 21:15 Primary Care Provider: MELISSA Reviewed notes: Nurses Notes, Medications, Allergies Allergies: Coded Allergies: NO KNOWN ALLERGIES (Unverified , 11/19/18) Home Meds Active Scripts Ibuprofen (Ibuprofen) 600 Mg Tab, 1 TAB PO TID, #90 TAB Prov:LC DONALDSON MD 09/06/25 Cephalexin Monohydrate (Cephalexin) 500 Mg Tab, 1 TAB PO BID for 5 Days, #10 TAB Prov:LC DONALDSON MD 09/06/25 Nitrofurantoin Monohydrate Mac (Macrobid) 100 Mg Cap, 100 MG PO BID for 7 Days, #14 CAP Prov:ADRIAN ENGLISH DO 09/04/25 Amoxicillin Trihydrate (Amoxicillin) 500 Mg Tab, 1 TAB PO TID for 5 Days, #15 T AB Prov:SVEN CHOI MD 03/17/25 Cephalexin Monohydrate (Cephalexin) 500 Mg Tab, 1 TAB PO QID, #40 TAB Prov:LUCILLE SWEENEY MD 01/14/25 Ibuprofen Micronized (Ibuprofen) 600 Mg Tab, 600 MG PO Q6HPRN PRN for 5 Days, #20 TAB Prov:FILIPE MARTINEZ E COMMERCE ANALYST 12/31/24 Dexamethasone (Decadron) 4 Mg Tb, 4 MG PO BID for 5 Days, #10 TAB Prov:JOSEY REDDY MD 11/19/24 Ibuprofen (Ibuprofen) 600 Mg Tab, 1 TAB PO TID, #90 TAB Prov:JOSEY REDDY MD 11/19/24 Acetaminophen (Acetaminophen) 325 Mg Tab, 325 MG PO Q6HP PRN for 10 Days, #40 TAB 0 Refills Prov:CYNDI ALFARO NP 09/12/24 Ibuprofen (Ibuprofen) 600 Mg Tab, 1 TAB PO TID for 10 Days, #30 TAB 0 Refills Prov:CYNDI ALFARO NP 09/12/24 Ondansetron HCl (Ondansetron) 4 Mg Tab, 4 MG PO BIDP PRN for 2 Days, #4 TAB 0 Refills Prov:CYNDI ALFARO NP 09/12/24 Promethazine-Dm (Promethazine Dm 6.25-15 mg/5Ml) 1 Barbie Barbie, 5 ML PO TIDP PRN for 10 Days, #150 ML 0 Refills Prov:CYNDI ALFARO NP 09/12/24 Acetaminophen (Acetaminophen) 325 Mg Tab, 325 MG PO Q4HP, #30 MG Prov:CYNDI ALFARO NP 09/12/24 Ibuprofen (Ibuprofen) 600 Mg Tab, 1 TAB PO TID for 10 Days, #30 TAB 0 Refills Prov:CYNDI ALFARO NP 06/04/24 Naproxen (NAPROSYN TABLET) 500 Mg Tb, 1 TAB PO BIDWM for 30 Days, #60 TAB 0 Refills Prov:CYNDI ALFARO NP 11/30/23 Ibuprofen (Ibuprofen) 600 Mg Tab, 600 MG PO TIDP PRN for 10 Days, #30 TAB 0 Refills Prov:CYNDI ALFARO NP 04/11/23 Cephalexin ( Keflex 500) 500 Mg Cap, 1 CAP PO QID for 7 Days, #28 CAP Prov:LANGVELVET Eliza DO 01/26/23 Oral Electrolytes (PEDIALYTE SOLUTION) 1,000 Ml So, 4 TSP PO Q1HP, #3 L Prov:ARSLAN BURT N.P. 07/24/13 Ibuprofen (Motrin Ib) 200 Mg Tab, 200 MG PO Q6HP, #30 Prov:ARSLAN BURT N.P. 07/24/13 Azithromycin (ZITHROMAX TABLET) 250 Mg Tb, 250 MG PO DAILY, #5 Prov:ARSLAN BURT N.P. 07/24/13 Information Source: Patient Mode of Arrival: Ambulatory Was a procedure done? Was a procedure done?: No Differential Diagnosis Kidney stone (Female): Other (Flank Pain;DDX include Nephrolethiasis, obstructive uropathy, kidney cancer, renal infarct, intraabdominal neoplasm, lower lobe pneumonia, retroperitoneal hemorrhage, pancreatitis, aneurysm, dissection, musculoskeletal, rib contusion/trauma, hematoma, PYLONEPHRITIS, muscle strain, spinal disease. IN A FEMALE) X-Ray, Labs, Meds, VS Vital Signs Date Time Temp Pulse Resp B/P (MAP) Pulse Ox O2 Delivery O2 Flow Rate FiO2 09/04/25 23:00 98 Room Air* 0 21 09/04/25 21:43 98.4 77 16 117/73 (88) 95 98.4 09/04/25 20:56 98.7 98 16 153/81 96 98.7 Lab Test 09/04/25 21:39 09/04/25 21:14 Range/Units White Blood Count 7.9 4.4-10.8 10^3/uL Red Blood Count 4.93 4.0-5.20 10^6/uL Hemoglobin 12.6 12.2-16.2 g/dL Hematocrit 37.8 36.0-46.0 % Mean Corpuscular Volume 76.6 L 80.0-100.0 fL Mean Corpuscular Hemoglobin 25.6 L 28.0-32.0 pg Mean Corpuscular Hemoglobin Concent 33.3 32.0-36.0 g/dL Red Cell Distribution Width 16.1 H 11.8-14.3 % Platelet Count 297 140-450 10^3/uL Mean Platelet Volume 8.3 6.9-10.8 fL Neutrophils (%) (Auto) 69.6 37.0-80.0 % Lymphocytes (%) (Auto) 18.0 10.0-50.0 % Monocytes (%) (Auto) 6.9 0.0-12.0 % Eosinophils (%) (Auto) 4.2 0.0-7.0 % Basophils (%) (Auto) 1.3 0.0-2.0 % Neutrophils # (Auto) 5.5 1.6-8.6 10 ^3/uL Lymphocytes # (Auto) 1.4 0.4-5.4 10 ^3/uL Monocytes # (Auto) 0.5 0-1.3 10 ^3/uL Eosinophils # (Auto) 0.3 0-0.8 10 ^3/uL Basophils # (Auto) 0.1 0-0.2 10 ^3/uL Nucleated Red Blood Cells 0.1 % Sodium Level 142 136-145 mmol/L Potassium Level 3.4 L 3.5-5.1 mmol/L Chloride Level 108 H 98-107 mmol/L Carbon Dioxide Level 21 20-31 mmol/L Anion Gap 13 5-15 Blood Urea Nitrogen 6 L 9-23 mg/dL Creatinine 0.85 0.550-1.02 mg/dL Glomerular Filtration Rate Calc 101 >90 mL/min BUN/Creatinine Ratio 7.1 L 10.0-20.0 Serum Glucose 91 74-106 mg/dL Lactic Acid Level 0.9 0.4-2.0 mmol/L Calcium Level 9.9 8.7-10.4 mg/dL Total Bilirubin 0.3 0.2-1.0 mg/dL Aspartate Amino Transferase (AST) 21 13-40 U/L Alanine Aminotransferase (ALT) 22 7-40 U/L Alkaline Phosphatase 68 46-116 U/L Total Protein 7.8 5.7-8.2 g/dL Albumin 4.9 H 3.2-4.8 g/dL Urine Color Light-yellow Yellow Urine Clarity Clear Clear Urine pH 6.5 5.0-9.0 Urine Specific [place] 1.013 1.001-1.035 Urine Protein Negative Negative Urine Ketones Negative Negative Urine Blood 2+ H Negative /uL Urine Nitrite Negative Negative Urine Bilirubin Negative Negative Urine Urobilinogen Normal Negative mg/dL Urine Leukocyte Esterase 1+ Negative /uL Urine RBC 1 0 - 4 /hpf Urine Microscopic WBC 2 0-5 /HPF Urine Squamous Epithelial Cells Few <5 /hpf Urine Bacteria None seen None Seen /hpf Urine Glucose Normal Normal mg/dL [place] [address] Ph: [phone] DIAGNOSTIC IMAGING Diagnostic Imaging Report : [id number] Signed PATIENT: NIYA SZYMANSKI ACCT: [id number] UNIT: [id number] : 2005 LOC: ER ROOM / BED: / AGE / SEX: 20 / F ADM STATUS: REG ER SERVICE 23 ORDERING PHYSICIAN: ADRIAN ENGLISH DO PROCEDURE(s): ABPL - CT AB PEL WO CON-NO ORAL OR IV REASON: r flank pain ORDER NUMBER(s): [id number], ACCESSION NUMBER(s): [id number] EXAM: CT CT AB PEL WO CON-NO ORAL OR IV History: r flank pain Comparison Study: CT CT AB PEL WO CON-NO ORAL OR IV on DOS: 01/14/25, CT CT AB PEL WO CON-NO ORAL OR IV on DOS: 01/25/23, CT ABD PELVIS WO CONTRAST on DOS: 02/08/20 TECHNIQUE: Multidetector spiral CT of the abdomen was performed from lung bases to pubic symphysis. Imaging was performed without IV contrast. Axial, coronal and sagittal multiplanar reformats were obtained from the axial data set by the technologist. Radiation Dose : 1. Abdomen/Pelvis: CTDIvol 14.49 mGy, DLP 771.69 mGy*cm. FINDINGS: Evaluation of solid organs is limited due to lack of intravenous contrast use. Lung Bases: No acute or significant lung base finding. Normal heart size. No pleural or pericardial effusion. Liver: The liver is normal in size. No focal lesions. Gallbladder and Biliary Tree: Unremarkable Spleen: Unremarkable Pancreas: The pancreas is grossly normal in appearance. Adrenal Glands: Unremarkable Kidneys: Kidneys are grossly normal without calculi or hydronephrosis. Bladder: Grossly unremarkable for degree of distention. Bowel: The stomach is grossly normal in appearance. Small bowel and colon are normal in caliber and distribution. Normal appendix is visualized in the right lower quadrant without findings of appendicitis. Ascites: Absent Lymphadenopathy: No mesenteric, retroperitoneal or periportal lymphadenopathy. Abdominal Wall and Mesentery: Unremarkable. Vasculature: The visualized abdominal aorta is normal in size and caliber. Evaluation of abdominal and pelvic vessels is limited due to lack of intravenous contrast. Pelvic Organs: Unremarkable Musculoskeletal: No aggressive focal bony lesions, acute fractures or dislocatio n. IMPRESSION: No acute abdominal or pelvic findings. Radiation optimization: All CT scans at this facility use at least one of these dose optimization techniques: automated exposure control mA and/or kV adjustment per patient size (includes targeted exams where dose is matched to clinical indication) or iterative reconstruction. ATED BY: ALEJANDRO GIRALDO MD DICTATED DATE/TIME: 09/04/252151 SIGNED BY: ALEJANDRO GIRALDO MD SIGNED DATE/TIME: 09/04/252151 CC: Time of 1ST Reevaluation: 21:45 Reevaluation 1ST: Unchanged Patient Education/Counseling: Diagnosis, Treatment, Prognosis Family Education/Counseling: No Family Present Comments MDM: patient presented with the above HPI.--flank pain----workup was initiated. patient was found with the above mentioned diagnosis. the following medications were ordered: please refer to order lists of meds and tests obtained by myself Dr. English. Patient ED course and VS have been stabilized. Patient has been reassessed in the ED and remained in a stable condition. Pertinent incidental findings were discussed with the patient and/or family. Patient/family voices understanding and is agreeable with plan. Patient has been observed in the ED adequate length of time to insure improvement/stability. Escalation of care considered: Consideration of escalation to observation or admission Patient was DISCHARGED home in a stable condition. All the reports of any imaging studies that were ordered by myself were reviewed by myself. SEPSIS Sepsis Screen Date sepsis recognized/suspect: Sep 04, 2025 Time Sepsis recognized/suspect: 2057 Recent Procedure: No On Antibiotic Therapy: No Respiratory Rate >20: No Heart Rate >90: Yes Temp<36 C (96.8 F) or >38.3 C: No SBP <90 or MAP <65 mmHG: No New Acute Mental Status Change: No Is the patient on CPAP, BIPAP,: No Physician Orders Ct Ab Pel Wo Con-No Oral Or Iv (09/04/25 21:24) Vital Signs Date Time Temp Pulse Resp B/P (MAP) Pulse Ox O2 Delivery O2 Flow Rate FiO2 09/04/25 23:00 98 Room Air* 0 21 09/04/25 21:43 98.4 77 16 117/73 (88) 95 98.4 09/04/25 20:56 98.7 98 16 153/81 96 98.7 Laboratory Tests Test 09/04/25 21:39 Lactic Acid Level 0.9 mmol/L (0.4-2.0) White Blood Count 7.9 10^3/uL (4.4-10.8) Departure 1 Departure Time of Disposition: 23:29 Impression: Primary Impression: Right flank pain Disposition: HOME / SELF CARE / HOMELESS Condition: Stable Additional Instructions: Additional instructions: Please read all instructions provided in this packet carefully. You MUST follow-up with your primary care/family doctor in 1 to 2 days. If you are unable to see your primary care/family doctor, please return to our emergency room for re-assessment and re-evaluation in 1 to 2 days. Return to the emergency room here in our facility or to the nearest ER [facility] if your symptoms change or worsen. CONSULTATIONS: you MUST Follow-up for consultation as soon as possible with: -urology in 1-2 days. Please call for appointment. You MUST call the consultants office yourself to make an appointment. You may need to arrange that through your insurance and/or your primary/family doctor. If you are unable to see the human resources consultant in 1 to 2 days, you must return to our emergency room (or any other ER of your choice) for re-assessment and re- evaluation. Adequate fluid hydration. Although you have been discharged from the Emergency Department, this does not mean that you have a "clean bill of health". No definitive diagnosis for your symptoms has been made today. It is possible that you are in the process of developing a serious illness. This is why you must return to the ED without fail if any new or worsening symptoms develop. Below is a copy of your radiological report for follow up: [address] [address] Ph: [phone] DIAGNOSTIC IMAGING Diagnostic Imaging Report : [id number] Signed PATIENT: NIYA SZYMANSKI ACCT: [id number] UNIT: [id number] : 2005 LOC: ER ROOM / BED: / AGE / SEX: 20 / F ADM STATUS: REG ER SERVICE 23 ORDERING PHYSICIAN: ADRIAN ENGLISH DO PROCEDURE(s): ABPL - CT AB PEL WO CON-NO ORAL OR IV REASON: r flank pain ORDER NUMBER(s): [id number], ACCESSION NUMBER(s): [id number] EXAM: CT CT AB PEL WO CON-NO ORAL OR IV History: r flank pain Comparison Study: CT CT AB PEL WO CON-NO ORAL OR IV on DOS: 01/14/25, CT CT AB P EL WO CON-NO ORAL OR IV on DOS: 01/25/23, CT ABD PELVIS WO CONTRAST on DOS: 02/08/20 TECHNIQUE: Multidetector spiral CT of the abdomen was performed from lung bases to pubic symphysis. Imaging was performed without IV contrast. Axial, coronal and sagittal multiplanar reformats were obtained from the axial data set by the technologist. Radiation Dose : 1. Abdomen/Pelvis: CTDIvol 14.49 mGy, DLP 771.69 mGy*cm. FINDINGS: Evaluation of solid organs is limited due to lack of intravenous contrast use. Lung Bases: No acute or significant lung base finding. Normal heart size. No pleural or pericardial effusion. Liver: The liver is normal in size. No focal lesions. Gallbladder and Biliary Tree: Unremarkable Spleen: Unremarkable Pancreas: The pancreas is grossly normal in appearance. Adrenal Glands: Unremarkable Kidneys: Kidneys are grossly normal without calculi or hydronephrosis. Bladder: Grossly unremarkable for degree of distention. Bowel: The stomach is grossly normal in appearance. Small bowel and colon are normal in caliber and distribution. Normal appendix is visualized in the right lower quadrant without findings of appendicitis. Ascites: Absent Lymphadenopathy: No mesenteric, retroperitoneal or periportal lymphadenopathy. Abdominal Wall and Mesentery: Unremarkable. Vasculature: The visualized abdominal aorta is normal in size and caliber. Evaluation of abdominal and pelvic vessels is limited due to lack of intravenous contrast. Pelvic Organs: Unremarkable Musculoskeletal: No aggressive focal bony lesions, acute fractures or dislocation. IMPRESSION: No acute abdominal or pelvic findings. Radiation optimization: All CT scans at this facility use at least one of these dose optimization techniques: automated exposure control mA and/or kV adjustment per patient size (includes targeted exams where dose is matched to clinical indication) or iterative reconstruction. ATED BY: ALEJANDRO GIRALDO MD DICTATED DATE/TIME: 09/04/252151 SIGNED BY: ALEJANDRO GIRALDO MD SIGNED DATE/TIME: 09/04/252151 CC: e-Prescriptions Nitrofurantoin Monohydrate Mac (Macrobid) 100 Mg Cap 100 MG PO BID for 7 Days, #14 CAP Prov: ADRIAN ENGLISH DO 09/04/25 Discharged With: Self Critical Care Note Critical Care Time?: No Heart Score Heart Score: Heart Score Response (Comments) Value History N/A 0 EKG N/A 0 Age N/A 0 Risk Factors N/A 0 Troponin N/A 0 Total 0 I personally scribed for ADRIAN ENGLISH DO ([email or web address]) on 09/04/25 at 21:24. Electronically submitted by Johnathon Doe ([email or web address]). ADRIAN ENGLISH DO Sep 04, 2025 21:24
[2025-09-04 21:43] VITALS: BP 117/73; PULSE 77; RESP 16; TEMP 98.4
[2025-09-04 21:43] LABS: Hematocrit 37.8 % (36.0-46.0); Hemoglobin 12.6 g/dL (12.2-16.2); Mean Corpuscular Hemoglobin 25.6 pg (28.0-32.0); Mean Corpuscular Volume 76.6 fL (80.0-100.0); Nucleated Red Blood Cells % 0.1 %
[2025-09-04 21:44] LABS: Urine Protein, UAD Negative (Negative)
--- NOTE | 2025-09-04 21:55 | DVH ---
EXAM: CT CT AB PEL WO CON-NO ORAL OR IV History: r flank pain Comparison Study: CT CT AB PEL WO CON-NO ORAL OR IV on DOS: 01/14/25, CT CT AB PEL WO CON-NO ORAL OR IV on DOS: 01/25/23, CT ABD PELVIS WO CONTRAST on DOS: 02/08/20 TECHNIQUE: Multidetector spiral CT of the abdomen was performed from lung bases to pubic symphysis. Imaging was performed without IV contrast. Axial, coronal and sagittal multiplanar reformats were obtained from the axial data set by the technologist. Radiation Dose : 1. Abdomen/Pelvis: CTDIvol 14.49 mGy, DLP 771.69 mGy*cm. FINDINGS: Evaluation of solid organs is limited due to lack of intravenous contrast use. Lung Bases: No acute or significant lung base finding. Normal heart size. No pleural or pericardial effusion. Liver: The liver is normal in size. No focal lesions. Gallbladder and Biliary Tree: Unremarkable Spleen: Unremarkable Pancreas: The pancreas is grossly normal in appearance. Adrenal Glands: Unremarkable Kidneys: Kidneys are grossly normal without calculi or hydronephrosis. Bladder: Grossly unremarkable for degree of distention. Bowel: The stomach is grossly normal in appearance. Small bowel and colon are normal in caliber and distribution. Normal appendix is visualized in the right lower quadrant without findings of appendicitis. Ascites: Absent Lymphadenopathy: No mesenteric, retroperitoneal or periportal lymphadenopathy. Abdominal Wall and Mesentery: Unremarkable. Vasculature: The visualized abdominal aorta is normal in size and caliber. Evaluation of abdominal and pelvic vessels is limited due to lack of intravenous contrast. Pelvic Organs: Unremarkable Musculoskeletal: No aggressive focal bony lesions, acute fractures or dislocation. IMPRESSION: No acute abdominal or pelvic findings. Radiation optimization: All CT scans at this facility use at least one of these dose optimization techniques: automated exposure control mA and/or kV adjustment per patient size (includes targeted exams where dose is matched to clinical indication) or iterative reconstruction.
[2025-09-04 21:59] LABS: Alanine Aminotransferase 22 U/L (7-40); Alkaline Phosphatase 68 U/L (46-116); Anion Gap 13 (5-15); BUN/Creatinine Ratio 7.1 (10.0-20.0); Calcium 9.9 mg/dL (8.7-10.4); Carbon Dioxide 21 mmol/L (20-31); Glucose 91 mg/dL (74-106); Sodium 142 mmol/L (136-145); Total Protein 7.8 g/dL (5.7-8.2)
[2025-09-04 22:03] LABS: Albumin 4.9 g/dL (3.2-4.8); Bilirubin, Total 0.3 mg/dL (0.2-1.0); Blood Urea Nitrogen 6 mg/dL (9-23); Chloride 108 mmol/L (98-107); Potassium 3.4 mmol/L (3.5-5.1)
[2025-09-04 23:00] VITALS: O2SAT 98
[2025-09-04] MEDS ORDERED: NITR-87 PO (23:30)
[2025-09-05] MEDS: KETOROLAC TROMETH 60MG/2ML VIAL IM ONE (00:07)
[2025-09-06] MEDS ORDERED: CEPH500T PO (21:26)
[2025-09-06] MEDS ORDERED: IBUP-1454 PO (21:27)
== END 2025-09-05 00:46 | disposition home or self-care (01) ==
LOC: ER 20:54
DX: R10.9 Unspecified abdominal pain (principal); F41.9 Anxiety disorder, unspecified; F32.A Depression, unspecified
CPT/HCPCS: 36415; 74176; 80053; 81001; 83605; 85025; 96372; 99285; J1885

== ENCOUNTER 2025-09-06 20:02 | Emergency (ER) | payer MEDICAID ==
[~2025-09-06] VITALS: Ht 157.5 cm; Wt 95.5 kg
[~2025-09-06 20:02] MED LIST changes: +NITR-87 PO
--- NOTE | 2025-09-06 20:28 | ED.PDOC ---
History of Present Illness HPI Comments 20-year-old female who came to ER for flank pains. Patient was experiencing lower back right flank pains 2 days ago. Was seen here, diagnostics done, was diagnosed of right flank pains. Patient is still complaining of right flank pains, earlier today would radiate to her right inguinal area. Noted to have nausea and vomiting. States last bowel movement was 3 days ago. Denies any burning in urination, but states she has difficulty urinating. REVIEW OF SYSTEMS: General: No fever, no chills, or fatigue HEENT: No sore throat, no earache, no congestion, no neck pain. Cardiac: No chest pain. No palpitations. Lungs: No shortness of breath, no cough. GI: (+) nausea, (+) vomiting, no diarrhea, + constipation, (+) right inguinal abdominal pain : No dysuria, frequency, or urgency. No hematuria. (+) right flank pains Musculoskeletal: No joint pain , no joint swelling, no extremity edema. Skin: No rash, no itching. Neuro: No headache, no dizziness, no weakness PHYSICAL EXAM: General: Awake, alert and oriented. No acute distress. Skin: Skin in warm, dry and intact without rashes or lesions. HEENT: The head is normocephalic and atraumatic. Conjunctivae are clear without exudates or hemorrhage. Sclera is non-icteric. Neck: Normal range of motion. No JVD. Cardiac: Regular rate Respiratory: No signs of respiratory distress. No Stridor. Abdomen: Positive right CVA tenderness Extremities: Upper and lower extremities are atraumatic in appearance without deformity. Neurological: The patient is awake, alert and oriented to person, place, and time with normal speech. Speech is clear. There is no facial asymmetry. Psychiatric: Appropriate mood and affect. Good judgement and insight. Chief Complaint: Flank Pain Time Seen by MD: 20:27 Primary Care Provider: MELISSA Reviewed Notes: Nurses Notes Allergies: Coded Allergies: NO KNOWN ALLERGIES (Unverified , 11/19/18) Home Meds Active Scripts Nitrofurantoin Monohydrate Mac (Macrobid) 100 Mg Cap, 100 MG PO BID for 7 Days, #14 CAP Prov:ADRIAN ENGLISH DO 09/04/25 Amoxicillin Trihydrate (Amoxicillin) 500 Mg Tab, 1 TAB PO TID for 5 Days, #15 TAB Prov:SVEN CHOI MD 03/17/25 Cephalexin Monohydrate (Cephalexin) 500 Mg Tab, 1 TAB PO QID, #40 TAB Prov:LUCILLE SWEENEY MD 01/14/25 Ibuprofen Micronized (Ibuprofen) 600 Mg Tab, 600 MG PO Q6HPRN PRN for 5 Days, #20 TAB Prov:FILIPE MARTINEZ [employer] 12/31/24 Dexamethasone (Decadron) 4 Mg Tb, 4 MG PO BID for 5 Days, #10 TAB Prov:JOSEY REDDY MD 11/19/24 Ibuprofen (Ibuprofen) 600 Mg Tab, 1 TAB PO TID, #90 TAB Prov:JOSEY REDDY MD 11/19/24 Acetaminophen (Acetaminophen) 325 Mg Tab, 325 MG PO Q6HP PRN for 10 Days, #40 TAB 0 Refills Prov:CYNDI ALFARO NP 09/12/24 Ibuprofen (Ibuprofen) 600 Mg Tab, 1 TAB PO TID for 10 Days, #30 TAB 0 Refills Prov:CYNDI ALFARO NP 09/12/24 Ondansetron HCl (Ondansetron) 4 Mg Tab, 4 MG PO BIDP PRN for 2 Days, #4 TAB 0 R efills Prov:CYNDI ALFARO NP 09/12/24 Promethazine-Dm (Promethazine Dm 6.25-15 mg/5Ml) 1 Barbie Barbie, 5 ML PO TIDP PRN for 10 Days, #150 ML 0 Refills Prov:CYNDI ALFARO NP 09/12/24 Acetaminophen (Acetaminophen) 325 Mg Tab, 325 MG PO Q4HP, #30 MG Prov:CYNDI ALFARO NP 09/12/24 Ibuprofen (Ibuprofen) 600 Mg Tab, 1 TAB PO TID for 10 Days, #30 TAB 0 Refills Prov:CYNDI ALFARO NP 06/04/24 Naproxen (NAPROSYN TABLET) 500 Mg Tb, 1 TAB PO BIDWM for 30 Days, #60 TAB 0 Refills Prov:CYNDI ALFARO NP 11/30/23 Ibuprofen (Ibuprofen) 600 Mg Tab, 600 MG PO TIDP PRN for 10 Days, #30 TAB 0 Refills Prov:CYNDI ALFARO NP 04/11/23 Cephalexin ( Keflex 500) 500 Mg Cap, 1 CAP PO QID for 7 Days, #28 CAP Prov:VELVET LANG Eliza DO 01/26/23 Oral Electrolytes (PEDIALYTE SOLUTION) 1,000 Ml So, 4 TSP PO Q1HP, #3 L Prov:ARSLAN BURT N.P. 07/24/13 Ibuprofen (Motrin Ib) 200 Mg Tab, 200 MG PO Q6HP, #30 Prov:ARSLAN BURT N.P. 07/24/13 Azithromycin (ZITHROMAX TABLET) 250 Mg Tb, 250 MG PO DAILY, #5 Prov:ARSLAN BURT N.P. 07/24/13 Information Source: Patient Mode of Arrival: EMS Past Medical History PAST MEDICAL HISTORY: Anxiety, Depression Surgical History: Denies all surgeries PERIOPERATIVE NURSE History: No Pertinent PERIOPERATIVE NURSE History Family History Family History: Reviewed,noncontributory to illness Social History Smoker: Non-Smoker Alcohol: Denies ETOH Use Drugs: Marijuana Lives In: Home Was a procedure done? Was a procedure done?: No Differential Dx Considerations may include: Musculoskeletal pain, urinary tract infection, kidney stones, flank pain X-Ray, Labs, Meds, VS Vital Signs Date Time Temp Pulse Resp B/P (MAP) Pulse Ox O2 Delivery O2 Flow Rate FiO2 09/06/25 20:09 97.7 106 20 151/86 98 97.7 Lab Test 09/06/25 20:21 Range/Units Urine Color Light-red Yellow Urine Clarity Ex.turbid Clear Urine pH 5.5 5.0-9.0 Urine Specific [place] 1.017 1.001-1.035 Urine Protein 1+ H Negative Urine Ketones Trace Negative Urine Blood 3+ H Negative /uL Urine Nitrite Negative Negative Urine Bilirubin Negative Negative Urine Urobilinogen Normal Negative mg/dL Urine Leukocyte Esterase 2+ Negative /uL Urine RBC 9311 0 - 4 /hpf Urine Microscopic WBC 32 H 0-5 /HPF Urine Squamous Epithelial Cells None seen <5 /hpf Urine Bacteria Few H None Seen /hpf Urine Glucose Normal Normal mg/dL Urine Test Negative Negative Time of 1ST Reevaluation: 20:22 Reevaluation 1ST: Unchanged Patient Education/Counseling: Need For Follow Up Family Education/Counseling: No Family Present SEPSIS Sepsis Screen Date sepsis recognized/suspect: Sep 06, 2025 Time Sepsis recognized/suspect: 2011 Recent Procedure: No On Antibiotic Therapy: No Respiratory Rate >20: No Heart Rate >90: No Temp<36 C (96.8 F) or >38.3 C: No SBP <90 or MAP <65 mmHG: No New Acute Mental Status Change: No Is the patient on CPAP, BIPAP,: No Physician Orders Phenazopyridine Hcl Tablet (Pyridium Tab (09/06/25 21:30) Acetaminophen Tablet (Tylenol Tablet) (09/06/25 21:30) Vital Signs Date Time Temp Pulse Resp B/P (MAP) Pulse Ox O2 Delivery O2 Flow Rate FiO2 09/06/25 20:09 97.7 106 20 151/86 98 97.7 Departure 1 Departure Time of Disposition: :25 Impression: Primary Impression: UTI (urinary tract infection) Disposition: HOME / SELF CARE / HOMELESS Condition: Stable Additional Instructions: ED DISCHARGE INSTRUCTIONS Instructions: Please read all instructions provided in this packet carefully. Although you have been discharged from the Emergency Department, this does not mean that you have a "clean bill of health". No definitive diagnosis for your symptoms has been made today. It is possible that you are in the process of developing a serious illness. This is why you must return to the ED without fail if any new or worsening symptoms (especially if your symptoms include chest pain, trouble breathing, abdominal pain, fever, headache, confusion, trouble seeing, or trouble walking) It is also very important that you see a primary care provider (PCP) within the next 3-5 days to follow up. If you are unable to get an appointment, return to the ED for re-evaluation. Urinary Tract Infection (UTI) in Women: Care Instructions A urinary tract infection (UTI) is an infection caused by bacteria. It can happen anywhere in the urinary tract. A UTI can happen in the: Kidneys. Ureters, the tubes that connect the kidneys to the bladder. Bladder. Urethra, where the urine comes out. Most UTIs are bladder infections. They often cause pain or burning when you urinate. Most UTIs can be cured with antibiotics. If you are prescribed antibiotics, be sure to complete your treatment so that the infection does not get worse. Follow-up care is a noonan part of your treatment and safety. Be sure to make and go to all appointments, and call your doctor if you are having problems. It's also a good idea to know your test results and keep a list of the medicines you take. How can you care for yourself at home? Take your antibiotics as directed. Do not stop taking them just because you feel better. You need to take the full course of antibiotics. Drink extra water and other fluids for the next day or two. This will help make the urine less concentrated and help wash out the bacteria that are causing the infection. (If you have kidney, heart, or liver disease and have to limit fluids, talk with your doctor before you increase the amount of fluids you drink.) Avoid drinks that are carbonated or have caffeine. They can irritate the bladder. Urinate often. Try to empty your bladder each time. To relieve pain, take a hot bath or lay a heating pad set on low over your lower belly or genital area. Never go to sleep with a heating pad in place. To prevent UTIs Drink plenty of water each day. This helps you urinate often, which clears bacteria from your system. (If you have kidney, heart, or liver disease and have to limit fluids, talk with your doctor before you increase the amount of fluids you drink.) Urinate when you need to. If you are sexually active, urinate right after you have sex. Change sanitary pads often. Avoid douches, bubble baths, feminine hygiene sprays, and other feminine hygiene products that have deodorants. After going to the bathroom, wipe from front to back. When should you call for help? Call your doctor now or seek immediate medical care if: You have new or worse fever, chills, nausea, or vomiting. You have new pain in your back just below your rib cage. This is called flank pain. There is new blood or pus in your urine. You have any problems with your antibiotic medicine. Watch closely for changes in your health, and be sure to contact your doctor if: You are not getting better after taking an antibiotic for 2 days. Your symptoms go away but then come back. e-Prescriptions Ibuprofen (Ibuprofen) 600 Mg Tab 1 TAB PO TID, #90 TAB Prov: LC DONALDSON MD 09/06/25 Cephalexin Monohydrate (Cephalexin) 500 Mg Tab 1 TAB PO BID for 5 Days, #10 TAB Prov: LC DONALDSON MD 09/06/25 Comments 20-year-old female with flank pain and urinary tract infection. Patient is well-appearing, nontoxic. Patient's symptoms improved during the ED observation. Vital signs stable. Diagnostic results reviewed and are not urgently actionable. Patient is felt stable for discharge home. Patient advised to follow up with primary care provider promptly and return to the emergency department with any new, worsening or concerning symptoms. Critical Care Note Critical Care Time?: No Stability Stability form required: No Heart Score Heart Score: Heart Score Response (Comments) Value History N/A 0 EKG N/A 0 Age N/A 0 Risk Factors N/A 0 Troponin N/A 0 Total 0 I personally scribed for LC DONALDSON MD ([email or web address]) on 09/06/25 at 20:28. Electronically submitted by Shimon Vegas ([email or web address]). LC DONALDSON MD Sep 06, 2025 20:28
[2025-09-06 21:14] LABS: Urine Protein, UAD 1+ (Negative)
[2025-09-06] MEDS ORDERED: CEPH500T PO (21:26)
[2025-09-06] MEDS ORDERED: IBUP-1454 PO (21:27)
[2025-09-06] MEDS: KETOROLAC TROMETH 30 MG/ML 1ML VIAL IM ONE (21:50)
[2025-09-06] MEDS: PHENAZOPYRIDINE HCL 100 MG TAB PO ONE (21:51)
[2025-09-06] MEDS: CEPHALEXIN 250 MG CAP PO ONE (21:51)
[2025-09-06] MEDS: ACETAMINOPHEN 325 MG TAB PO ONE (21:52)
[2025-09-06 21:57] VITALS: BP 123/83; PULSE 59; RESP 20; TEMP 98.8; O2SAT 98
== END 2025-09-06 21:58 | disposition home or self-care (01) ==
LOC: ER 20:02
DX: N39.0 Urinary tract infection, site not specified (principal); Z79.899 Other long term (current) drug therapy
CPT/HCPCS: 81001; 81025; 96372; 99284; J1885

== ENCOUNTER 2025-09-18 09:31 | Emergency (ER) | payer MEDICARE, MEDICAID ==
[~2025-09-18] VITALS: Ht 157.5 cm; Wt 96.2 kg
--- NOTE | 2025-09-18 09:50 | ED.PDOC ---
General HPI Comments 20-year-old female that presents to the ED for chief complaint of flank pain. Patient states that she has been having flank pain for the past two weeks. Patient was seen at [facility] two weeks prior and diagnosed UTI and given prescription of Cipro and discharged. Patient states since she had has taken and finish her course of antibiotics. The patient states over the past few days she has continued to have right flank pain with the associated pain radiating down to the right groin and pelvic area. Patient states she has been having associated nausea and vomiting for the past few days. Patient otherwise has noted heart rate of 106 with a otherwise stable vitals. Patient otherwise denies any other symptoms. Chief Complaint: Flank Pain Time Seen by MD: 09:49 Primary Care Provider: MELISSA Reviewed notes: Medications, Allergies Allergies: Coded Allergies: NO KNOWN ALLERGIES (Unverified , 11/19/18) Home Meds Active Scripts Ibuprofen (Ibuprofen) 600 Mg Tab, 1 TAB PO TID, #90 TAB Prov:LC DONALDSON MD 09/06/25 Cephalexin Monohydrate (Cephalexin) 500 Mg Tab, 1 TAB PO BID for 5 Days, #10 TAB Prov:LC DONALDSON MD 09/06/25 Nitrofurantoin Monohydrate Mac (Macrobid) 100 Mg Cap, 100 MG PO BID for 7 Days, #14 CAP Prov:ADRIAN ENGLISH DO 09/04/25 Amoxicillin Trihydrate (Amoxicillin) 500 Mg Tab, 1 TAB PO TID for 5 Days, #15 TAB Prov:SVEN CHOI MD 03/17/25 Cephalexin Monohydrate (Cephalexin) 500 Mg Tab, 1 TAB PO QID, #40 TAB Prov:LUCILLE SWEENEY MD 01/14/25 Ibuprofen Micronized (Ibuprofen) 600 Mg Tab, 600 MG PO Q6HPRN PRN for 5 Days, #20 TAB Prov:FILIPE MARTINEZ 12/31/24 Dexamethasone (Decadron) 4 Mg Tb, 4 MG PO BID for 5 Days, #10 TAB Prov:JOSEY REDDY MD 11/19/24 Ibuprofen (Ibuprofen) 600 Mg Tab, 1 TAB PO TID, #90 TAB Prov:JOSEY REDDY MD 11/19/24 Acetaminophen (Acetaminophen) 325 Mg Tab, 325 MG PO Q6HP PRN for 10 Days, #40 TAB 0 Refills Prov:CYNDI ALFARO [employer]ONE FABRICATOR 09/12/24 Ibuprofen (Ibuprofen) 600 Mg Tab, 1 TAB PO TID for 10 Days, #30 TAB 0 Refills Prov:CYNDI ALFARO [employer]ONE FABRICATOR 09/12/24 Ondansetron HCl (Ondansetron) 4 Mg Tab, 4 MG PO BIDP PRN for 2 Days, #4 TAB 0 Refills Prov:CYNDI ALFARO STONE FABRICATOR 09/12/24 Promethazine-Dm (Promethazine Dm 6.25-15 mg/5Ml) 1 Barbie Barbie, 5 ML PO TIDP PRN for 10 Days, #150 ML 0 Refills Prov:CYNDI ALFARO [employer] FABRICATOR 09/12/24 Acetaminophen (Acetaminophen) 325 Mg Tab, 325 MG PO Q4HP, #30 MG Prov:CYNDI ALFARO STONE FABRICATOR 09/12/24 Ibuprofen (Ibuprofen) 600 Mg Tab, 1 TAB PO TID for 10 Days, #30 TAB 0 Refills Prov:CYNDI ALFARO STONE FABRICATOR 06/04/24 Naproxen (NAPROSYN TABLET) 500 Mg Tb, 1 TAB PO BIDWM for 30 Days, #60 TAB 0 Ref ills Prov:CYNDI ALFARO STONE FABRICATOR 11/30/23 Ibuprofen (Ibuprofen) 600 Mg Tab, 600 MG PO TIDP PRN for 10 Days, #30 TAB 0 Refills Prov:CYNDI ALFARO STONE FABRICATOR 04/11/23 Cephalexin ( Keflex 500) 500 Mg Cap, 1 CAP PO QID for 7 Days, #28 CAP Prov:VELVET LANG DO 01/26/23 Oral Electrolytes (PEDIALYTE SOLUTION) 1,000 Ml So, 4 TSP PO Q1HP, #3 L Prov:ARSLAN BURT N.P. 07/24/13 Ibuprofen (Motrin Ib) 200 Mg Tab, 200 MG PO Q6HP, #30 Prov:ARSLAN BURT N.P. 07/24/13 Azithromycin (ZITHROMAX TABLET) 250 Mg Tb, 250 MG PO DAILY, #5 Prov:ARSLAN BURT N.P. 07/24/13 Information Source: Patient Mode of Arrival: Ambulatory Brought in by: self Past Medical History PAST MEDICAL HISTORY: Anxiety, Depression Surgical History: Denies all surgeries BEAM DYER RECESSED VAT History: No Pertinent BEAM DYER RECESSED VAT History Family History Family History: Reviewed,noncontributory to illness Social History Smoker: Non-Smoker Alcohol: Denies ETOH Use Drugs: Marijuana Lives In: Home Constitutional: denies: chills, diaphoresis, fatigue, fever, malaise, sweats, weakness, others EENTM: denies: blurred vision, double vision, ear bleeding, ear discharge, ear drainage, ear pain, ear ringing, eye pain, eye redness, hearing loss, mouth pain, mouth swelling, nasal discharge, nose bleeding, nose congestion, nose pain, photophobia, tearing, throat pain, throat swelling, voice changes, others Respiratory: denies: cough, hemoptysis, orthopnea, SOB at rest, shortness of breath, SOB with excertion, stridor, wheezing, others Cardiovascular: denies: chest pain, dizzy spells, diaphoresis, Dyspnea on exertion, edema, irregular heart beat, left arm pain, lightheadedness, palpitations, PND, syncope, others Gastrointestinal: reports: nausea, vomiting; denies: abdomen distended, abdominal pain, blood streaked bowels, constipated, diarrhea, dysphagia, difficulty swallowing, hematemesis, melena, poor appetite, poor fluid intake, rectal bleeding, rectal pain, others Genitourinary: reports: flank pain; denies: abnormal vagina bleeding, burning, dyspareunia, dysuria, frequency, hematuria, incontinence, pain, , vagina discharge, urgency, others Neurological: denies: dizziness, fainting, headache, left sided numbness, left sided weakness, numbness, paresthesia, pre-existing deficit, right sided numbness, right sided weakness, seizure, speech problems, tingling, tremors, weakness, others Musculoskeletal: denies: back pain, gout, joint pain, joint swelling, muscle pain, muscle stiffness, neck pain, others Integumetry: denies: bruises, change in color, change in hair/nails, dryness, laceration, lesions, lumps, rash, wounds, others Allergic/Immunocompromised: denies: Difficulty Healing, Frequent Infections, Hives, Itching, others Hematologic/Lymphatic: denies: anemia, blood clots, easy bleeding, easy bruisi ng, swollen glands, others Endocrine: denies: excessive hunger, excessive sweating, excessive thirst, exce ssive urination, flushing, intolerance to cold, intolerance to heat, unexplained weight gain, unexplained weight loss, others Psychiatric: denies: anxiety, bipolar disorder, depression, hopeless, panic disorder, schizophrenia, sleepless, suicidal, others All Other Systems: Reviewed and Negative Physical Exam General Appearance: No Apparent Distress, Normal HEENT: Normal ENT Inspection, Pharynx Normal, TMs Normal Neck: Full Range of Motion, Non-Tender, Normal, Normal Inspection Respiratory: Chest Non-Tender, Lungs Clear, No Accessory Muscle Use, No Respiratory Distress, Normal Breath Sounds Cardiovascular: No Edema, No JVD, No Murmur, No Gallop, Normal Peripheral Pulses, Regular Rate/Rhythm Breast Exam: Deferred Gastrointestinal: No Organomegaly, Non Tender, No Pulsatile Mass, Normal Bowel Sounds, Soft Genitalia: Deferred Pelvic: Deferred Rectal: Deferred Extremities: No calf tenderness, Normal capillary refill, Normal inspection, Normal range of motion, Non-tender, No pedal edema Musculoskeletal : Apperance: Normal Neurologic: Alert, floor worker well service II-XII nml as Tested, No Motor Deficits, Normal Affect, Normal Mood, No Sensory Deficits Cerebellar Function: Normal Reflexes: Normal Skin: Dry, Normal Color, Warm Lymphatic: No Adenopathy Was a procedure done? Was a procedure done?: No Differential Diagnosis Urinary Problem (Female): Pyelonephritis, Urinary retention, UTI X-Ray, Labs, Meds, VS Vital Signs Date Time Temp Pulse Resp B/P (MAP) Pulse Ox O2 Delivery O2 Flow Rate FiO2 09/18/25 09:56 98.2 78 18 116/72 (87) 98 98.2 09/18/25 09:33 98.1 106 20 135/88 97 98.1 Lab Test 09/18/25 09:57 09/18/25 09:00 Range/Units White Blood Count 9.3 4.4-10.8 10^3/uL Red Blood Count 5.19 4.0-5.20 10^6/uL Hemoglobin 13.2 12.2-16.2 g/dL Hematocrit 39.4 36.0-46.0 % Mean Corpuscular Volume 75.9 L 80.0-100.0 fL Mean Corpuscular Hemoglobin 25.5 L 28.0-32.0 pg Mean Corpuscular Hemoglobin Concent 33.6 32.0-36.0 g/dL Red Cell Distribution Width 16.7 H 11.8-14.3 % Platelet Count 334 140-450 10^3/uL Mean Platelet Volume 8.0 6.9-10.8 fL Neutrophils (%) (Auto) 69.1 37.0-80.0 % Lymphocytes (%) (Auto) 17.1 10.0-50.0 % Monocytes (%) (Auto) 5.3 0.0-12.0 % Eosinophils (%) (Auto) 5.6 0.0-7.0 % Basophils (%) (Auto) 2.9 H 0.0-2.0 % Neutrophils # (Auto) 6.4 1.6-8.6 10 ^3/uL Lymphocytes # (Auto) 1.6 0.4-5.4 10 ^3/uL Monocytes # (Auto) 0.5 0-1.3 10 ^3/uL Eosinophils # (Auto) 0.5 0-0.8 10 ^3/uL Basophils # (Auto) 0.3 H 0-0.2 10 ^3/uL Nucleated Red Blood Cells 0.1 % Sodium Level 141 136-145 mmol/L Potassium Level 3.5 3.5-5.1 mmol/L Chloride Level 104 98-107 mmol/L Carbon Dioxide Level 25 20-31 mmol/L Anion Gap 12 5-15 Blood Urea Nitrogen 7 L 9-23 mg/dL Creatinine 0.89 0.550-1.02 mg/dL Glomerular Filtration Rate Calc 95 >90 mL/min BUN/Creatinine Ratio 7.9 L 10.0-20.0 Serum Glucose 96 74-106 mg/dL Calcium Level 10.2 8.7-10.4 mg/dL Urine Color Yellow Yellow Urine Clarity Turbid H Clear Urine pH 6.5 5.0-9.0 Urine Specific [place] 1.025 1.001-1.035 Urine Protein 1+ H Negative Urine Ketones Negative Negative Urine Blood Negative Negative /uL Urine Nitrite Negative Negative Urine Bilirubin Negative Negative Urine Urobilinogen Normal Negative mg/dL Urine Leukocyte Esterase 3+ Negative /uL Urine RBC 4 0 - 4 /hpf Urine Microscopic WBC 15 H 0-5 /HPF Urine Squamous Epithelial Cells Mod <5 /hpf Urine Bacteria None seen None Seen /hpf Urine Hyaline Casts Few 0 - 2 /lpf Urine Mucus Few None Seen Urine Glucose Normal Normal mg/dL Urine Test Negative Negative Urine Opiates Screen Neg NEGATIVE Urine Fentanyl Screen Neg NEGATIVE Urine Barbiturates Screen Neg NEGATIVE Urine Phencyclidine Screen Neg NEGATIVE Urine Amphetamines Screen Neg NEGATIVE Urine Benzodiazepines Screen Neg NEGATIVE Urine Cocaine Screen Neg NEGATIVE Urine Cannabinoids Screen Pos NEGATIVE Current Medications Medications (Trade) Dose Ordered Sig/Jhon Route Start Time Stop Time Status Last Admin Sodium Chloride 1,000 ml @ 1,000 mls/hr Q1H ONCE IV 09/18/25 10:00 09/18/25 10:59 09/18/25 10:31 Ondansetron HCl (Zofran) 4 mg ONCE ONCE IV 09/18/25 10:00 09/18/25 10:01 DC 09/18/25 10:33 X-Ray, Labs, Meds, VS Comment Patient arrives alert and oriented, ABC's intact, afebrile, vital signs stable, saturating well in room air Peripheral IV insertion+ labs were ordered. CBC was ordered to exclude anemia, blood loss, or infection. BMP was ordered to exclude electrolyte abnormalities, renal failure, dehydration, hyperglycemia Urinalysis was ordered to rule out UTI or hematuria. Diagnostic imaging ordered by me and results interpreted by radiology : Labs in the ED showed (pertinent+ and then pertinent-) Patient was given: IV fluids, Zofran 4 mg IV _. Tolerated medications with no adverse reaction. Additional MDM Review of External, Non-ED records: External records reviewed. Discussion with independent historian (EMS, family) history obtained from the patient/parents (if applicable) at bedside Chronic conditions affecting care: None Social determinants of health affecting care: None Consideration of admission (observation or admission): I considered escalation of care to admission for this patient, however given the reassuring workup, the patient is safe for outpatient management. Discussion with the Radiology: No Tests considered but not performed: Prescription medication considered but not given: 12 lead EKG interpretation: Time of 1ST Reevaluation: 10:20 Reevaluation 1ST: Unchanged Patient Education/Counseling: Diagnosis, Treatment Family Education/Counseling: No Family Present SEPSIS Sepsis Screen Date sepsis recognized/suspect: Sep 18, 2025 Time Sepsis recognized/suspect: 935 Recent Procedure: No On Antibiotic Therapy: No Respiratory Rate >20: No Heart Rate >90: Yes Temp<36 C (96.8 F) or >38.3 C: No SBP <90 or MAP <65 mmHG: No New Acute Mental Status Change: No Is the patient on CPAP, BIPAP,: No Physician Orders Peripheral Saline Lock (09/18/25 09:47) Sodium Chloride 0.9% (09/18/25 10:00) Vital Signs Date Time Temp Pulse Resp B/P (MAP) Pulse Ox O2 Delivery O2 Flow Rate FiO2 09/18/25 09:56 98.2 78 18 116/72 (87) 98 98.2 09/18/25 09:33 98.1 106 20 135/88 97 98.1 Laboratory Tests Test 09/18/25 09:57 White Blood Count 9.3 10^3/uL (4.4-10.8) Medications Medications Dose Ordered Sig/Jhon Route Start Time Stop Time Status Last Admin Dose Admin Ondansetron HCl 4 mg ONCE ONCE IV 09/18/25 10:00 09/18/25 10:01 DC 09/18/25 10:33 Sodium Chloride 1,000 ml @ 1,000 mls/hr Q1H ONCE IV 09/18/25 10:00 09/18/25 10:59 09/18/25 10:31 Departure 1 Departure Time of Disposition: 10:58 Impression: Primary Impression: UTI (urinary tract infection) Additional Impression: Cannabis hyperemesis syndrome Disposition: HOME / SELF CARE / HOMELESS Condition: Stable e-Prescriptions Ondansetron HCl (Ondansetron) 4 Mg Tab 4 MG PO Q8HP PRN for 3 Days, #9 TAB 0 Refills Prov: CYNDI ALFARO NP 09/18/25 Sulfamethoxazole W/Trimethopri (Bactrim Ds Tablet) 1 Tab Tb 1 TAB PO BID for 5 Days, #10 TAB 0 Refills Prov: CYNDI ALFARO NP 09/18/25 Critical Care Note Critical Care Time?: No Stability Stability form required: No Heart Score Heart Score: Heart Score Response (Comments) Value History N/A 0 EKG N/A 0 Age N/A 0 Risk Factors N/A 0 Troponin N/A 0 Total 0 I personally scribed for CYNDI ALFARO NP ([email or web address]) on 09/18/25 at 09:50. Electronically submitted by Bibiana ARANDA). I personally scribed for CYNDI ALFARO NP ([email or web address]) on 09/18/25 at 10:55. Electronically submitted by Bibiana Burton ([email or web address]). CYNDI ALFARO NP Sep 18, 2025 09:50
[2025-09-18 09:56] VITALS: O2SAT 98
[2025-09-18 10:10] LABS: Hematocrit 39.4 % (36.0-46.0); Hemoglobin 13.2 g/dL (12.2-16.2); Mean Corpuscular Hemoglobin 25.5 pg (28.0-32.0); Mean Corpuscular Volume 75.9 fL (80.0-100.0); Nucleated Red Blood Cells % 0.1 %
[2025-09-18 10:24] LABS: Chloride 104 mmol/L (98-107); Potassium 3.5 mmol/L (3.5-5.1); Sodium 141 mmol/L (136-145)
[2025-09-18 10:25] LABS: Anion Gap 12 (5-15); Carbon Dioxide 25 mmol/L (20-31)
[2025-09-18 10:26] LABS: Calcium 10.2 mg/dL (8.7-10.4)
[2025-09-18 10:27] LABS: Urine Protein, UAD 1+ (Negative)
[2025-09-18 10:31] LABS: BUN/Creatinine Ratio 7.9 (10.0-20.0); Glucose 96 mg/dL (74-106)
[2025-09-18] MEDS: SODIUM CHLORIDE 0.9% 1,000 ML IV ONE (10:31)
[2025-09-18] MEDS: ONDANSETRON HCL 4 MG/2 ML VIAL IV ONE (10:33)
[2025-09-18 10:34] LABS: Blood Urea Nitrogen 7 mg/dL (9-23)
[2025-09-18 10:47] LABS: Amphetamine Screen, Urine Neg (NEGATIVE)
[2025-09-18 10:51] LABS: Barbiturate Scree,Urine Neg (NEGATIVE); Benzodiazephine Screen, Urine Neg (NEGATIVE); Cannabinoid Screen, Urine Pos (NEGATIVE); Cocaine Screen, Urine Neg (NEGATIVE); Opiate Scree,Urine Neg (NEGATIVE); Phencyclidine Screen, Urine Neg (NEGATIVE)
[2025-09-18] MEDS ORDERED: ONDA-155 PO (10:58)
[2025-09-18] MEDS ORDERED: BACDST PO (10:58)
[2025-09-18 11:40] VITALS: BP 125/81; PULSE 61; RESP 16; TEMP 98.3
== END 2025-09-18 11:48 | disposition home or self-care (01) ==
LOC: ER 09:31
DX: N39.0 Urinary tract infection, site not specified (principal); R11.16 Cannabis hyperemesis syndrome; Z87.440 Personal history of urinary (tract) infections; Z79.52 Long term (current) use of systemic steroids; Z79.899 Other long term (current) drug therapy
CPT/HCPCS: 36415; 80048; 80307; 81001; 81025; 85025; 96361; 96374; 99283; J2405; J7030